=== PATIENT | female | born 1970 | race Caucasian/White ===

== ENCOUNTER 2018-04-17 17:52 | Emergency (ER) | payer MEDICAID, SELFPAY ==
[2018-04-17 18:04] VITALS: BP 112/71; PULSE 79; RESP 18; TEMP 36.6; O2SAT 99
--- NOTE | 2018-04-17 18:16 | DI.REPORT_ITS ---
SYMPTOM/DIAGNOSIS: TRAUMA, PAIN ANTERIORLY RIGHT ANKLE: No fracture or ankle mortise widening is seen. IMPRESSION: Negative right ankle.
[2018-04-17] MEDS: Ibuprofen 800 MG TAB PO (18:54)
--- NOTE | 2018-04-17 19:15 | DI.VRAD_ITS ---
EXAM: XR Right Ankle Complete, 3 or More Views CLINICAL HISTORY: 47 years old, female; Pain; Ankle; Right; Patient HX: Trauma TECHNIQUE: Frontal, lateral and oblique views of the right ankle. COMPARISON: CR - RIGHT FOOT COMPLETE 2013-04-26 23:53 FINDINGS: Bones/joints: Unremarkable. No acute fracture. No dislocation. Soft tissues: Unremarkable. IMPRESSION: Normal right ankle x-rays. Dictated and Authenticated by: Yobani Ribeiro MD. Ordering:CAPO JACOBS MD
--- NOTE | 2018-04-17 19:21 | ED.GENADUL ---
Disposition Clinical Impression: Ankle abrasion, Ankle contusion Disposition: HOME Condition: Fair Instructions: Contusion in Adults (ED), Abrasion (ED) Additional Instructions: Encourage rest, ice, elevation. Tylenol and/or ibuprofen as needed for discomfort. Please wear more supportive footwear. Ankle brace while pain persists. Keep wound clean, dry, covered. Monitor for signs of infection including redness, warmth, drainage, fever/chills, increased pain. If these arise please seek care urgently once again. Please with primary care in 1 week for reevaluation. Referrals: Becky Diana NP [Primary Care Provider] - Medical Decision Making - Radiology Data Radiology results: report reviewed X-ray reviewed by radiologist. Advise bones are unremarkable no acute fracture dislocation. Soft tissues are unremarkable. - Medical Decision Making Patient presents today with chief complaint of abrasion and contusion to the anterior aspect of the right ankle. States she struck it against a metal bed rail. She reports the pain is severe. Patient is requesting ibuprofen help with discomfort. She has a 1 cm superficial abrasion. I have asked her nursing staff to cleanse this. No intervention of the wound is necessary at this time. Appears very superficial. No subcu subcutaneous tissues involved. She does have surrounding soft tissue swelling. Patient is endorsing fairly diffuse discomfort with palpation. No pain at the proximal fifth metatarsal. She did not suffer rotational event that she is aware of. No pain proximal to the wound. We will obtain x-rays to evaluate for possible bony abnormality given the level of discomfort and difficulty with ambulation. Discussed this plan with patient is in agreement. X-ray without significant abnormality Discussed findings with the patient. Wound had been cleansed by nursing staff. We discussed wound care. Patient will be fitted with a lace up ankle brace. Encourage rest, ice, elevation. Tylenol and/or ibuprofen as needed for discomfort. We discussed new/worsening symptoms when to seek care urgently once again. Advise follow-up care in 1 week for reevaluation pain persist. All of her questions and concerns were addressed she is agreement this plan. Nursing staff fitted the patient with a lace up ankle brace and still she continues to endorse severe pain in the ankle. She is requesting crutches. Nursing staff will give crutches to help with ambulation. History of Present Illness - General Chief complaint: Orthopedic Stated complaint: ANKLE INJURY Time Seen by Provider: 04/17/18 18:15 Source: patient, RN notes reviewed Mode of arrival: ambulatory Limitations: no limitations - History of Present Illness Initial comments: Is a 47-year-old female presents today with chief complaint of right ankle pain. Arrival she was trying to set up a bed when she struck the anterior aspect of her right ankle against a metal bars of the bed. States that she struck with such force that her leg became entangled and she actually tore the bar from the bed. Last tetanus was last year per patient report. She denies any altered sensation. States that she has been having severe discomfort with mobilization. Has not had anything as of yet for her discomfort. Noted a small abrasion on the anterior aspect of the ankle. Wound is bleeding slightly. - Related Data Unknown [No Known Home Meds] 04/17/18 Allergies Allergy/AdvReac Type Severity Reaction Status Date / Time codeine Allergy Unknown Unverified 04/17/18 18:09 escitalopram oxalate Allergy Unknown Unverified 04/17/18 18:09 [From Lexapro] hydroxyzine Allergy Unknown Unverified 04/17/18 18:09 hydrocodone bitartrate AdvReac Severe cannot Unverified 04/17/18 18:09 [From Vicodin] breath DEMEROL/NARCOTICS AdvReac Intermediate Uncoded 04/17/18 18:09 Review of Systems Constitutional: no symptoms reported. denies: chills, fever Respiratory: no symptoms reported Musculoskeletal: as per HPI Skin: as per HPI Neurological: as per HPI Past Medical History - Past Medical History Rheumatoid arthritis, fibromyalgia, migraines Surgical history: other (D&C) - Social History Alcohol use: none Drug use: marijuana General Exam - General Limitations: no limitations General appearance: alert, in no apparent distress - Eye Eye exam: Present: normal apperance - Respiratory Respiratory exam: Absent: respiratory distress - Extremities Exam Extremities exam: Present: full ROM, tenderness, normal capillary refill, joint swelling. Absent: normal inspection (Exam the patient's right lower extremity is significant for a 1 cm superficial abrasion the anterior ankle. Wound is not actively bleeding. Is not into the subcutaneous tissue. Surrounding this, soft tissues are swollen. No discoloration. No erythema or ecchymosis. No discharge from the wound. Patient has full range of motion but does have pain elicited with dorsiflexion. Patient has fairly diffuse discomfort with palpation about the ankle although is maximal near the area of soft tissue swelling and abrasion.), pedal edema, calf tenderness - Neurological Exam Neurological exam: Present: alert, abnormal gait (Patient is ambulating with an antalgic gait secondary to right ankle pain). Absent: motor sensory deficit - Psychiatric Psychiatric exam: Present: normal affect, normal mood - Skin Skin exam: Present: warm, dry. Absent: intact (As above) Course Vital Signs - 24 hr 04/17/18 18:04 Temperature 36.6 C Pulse 79 Respiratory 18 Rate Blood Pressure 112/71 Pulse Oximetry 99
== END 2018-04-17 20:00 | disposition home or self-care (01) ==
PROVIDERS: Emergency Provider Physician Assistant; PCP Nurse Practitioner Family
DX: S90.511A Abrasion, right ankle, initial encounter (principal); S90.01XA Contusion of right ankle, initial encounter; W22.09XA Striking against other stationary object, initial encounter
CPT/HCPCS: 29515; 99284; 73610; 99282; E0114; L1902

== ENCOUNTER 2018-08-04 10:24 | Outpatient (CLI) | payer MEDICAID, SELFPAY ==
[2018-08-04 12:16] LABS: TSH (W/Ref FT4) 0.94 uIU/mL (0.358-3.74)
== END 2018-08-04 10:44 ==
PROVIDERS: PCP Nurse Practitioner Family; Visit Provider Nurse Practitioner Family
DX: F32.9 Major depressive disorder, single episode, unspecified (principal)
CPT/HCPCS: 36415; 84443

== ENCOUNTER 2019-08-16 20:08 | Emergency (ER) | payer MEDICAID, SELFPAY ==
--- NOTE | 2019-08-16 20:19 | W.ED.GENAD ---
Discharge Plan Disposition Patient Disposition: HOME Condition: Stable Discharge Details Chief Complaint: Chest Pain Clinical Impression: Asthma, Chest pain Primary Care Provider: Becky Diana ED Provider: Reji Olivo Home Meds and New Rx's Prescriptions: New prednisone 20 mg tablet 60 mg PO DAILY 4 Days Qty: 12 RF: 0 Continued albuterol sulfate [Ventolin HFA] 90 mcg/actuation HFA aerosol inhaler 2 puff IH Q4H PRN Qty: 8 RF: 3 guaifenesin 600 mg tablet extended release 12hr 600 mg PO BID PRN (Reason: cough) Qty: 30 RF: 0 Discharge Instructions Instructions: Chest Pain (ED) Additional Instructions: Follow up with your primary care provider within 1 week if you have worsening pain, difficulty breathing or feel more ill return to the emergency department Medical Decision Making 48 yo female with hx of anxuiety, asthma, no prior known heart disease comes in with 3 days of constant chest tightness. Denies pain with exertion, radiaion of taye, fevers, recent travel or surgeries. She is speaking in full sentences on exam with wheezing bilaterally in lower lung rose, no rashes on chest, no abdominal tenderness, no murmurs. HAs no leg swelling or calf pain. Her heart score is 1, will send troponin. Normal vascular exam and no tearing back pain so doubt dissection. Wells low and perc negative so doubt PE labs and xray unremarkable. She feels much better after neb and steroids and lung exam clear. Given over 4 hours of pain do not feel repeat trponin testing indicated. will d/c home and advised f/u with pcp and return precautions given Differential Diagnosis Differential Diagnosis: asthma, copd, pna, acs Medical Records Medical records reviewed: Yes I reviewed the patient's medical records. Imaging Data Radiologic Study: Attestation: I personally reviewed and interpreted this imaging study as follows: Imaging: X-Ray Radiologist's impression: emphysema Lab Data Lab results reviewed: Yes I reviewed the patient's lab results. ECG Data Attestation: I personally reviewed and interpreted this ECG (s) as follows: Prior ECG tracings: not available for review Interpretation: 1st ekg sinus rhythm, rate of 90, qtc 436, no acute st t wave ischemic findings 2nd ekg with v1 and v2 not flipped on lead placeemnt shows sinus rhtyhm, rate of 91, no acute st t wave ischemifc findings HPI General Mode of arrival: ambulatory. Date/Time Provider Initiated Documentation: 08/16/19 20:09. Limitations to Documentation: no limitations. Information obtained by: patient. History of Present Illness 48 year old F presents to the emergency department with the chief complaint of chest tightness, described as mild, with intensity rated at 3. Patient started experiencing this day(s) (3) and it has been constant. other things that improve symptom(s), (relaxing) No exacerbating factors reported . Patient did receive the following treatments prior to arrival, none Related Data Home Medications Medication Instructions Recorded Confirmed albuterol sulfate 90 mcg/actuation 2 puff IH Q4H PRN #8 gm 06/02/19 08/16/19 aerosol inhaler guaifenesin 600 mg tablet, 600 mg PO BID PRN #30 tab 06/02/19 08/16/19 extended release 12 hr prednisone 60 mg PO DAILY 4 Days #12 tab 08/16/19 Previous Rx's Medication Instructions Recorded albuterol sulfate 90 mcg/actuation 2 puff IH Q4H PRN #8 gm 06/02/19 aerosol inhaler guaifenesin 600 mg tablet, 600 mg PO BID PRN #30 tab 06/02/19 extended release 12 hr prednisone 60 mg PO DAILY 4 Days #12 tab 08/16/19 Allergies Allergy/AdvReac Type Severity Reaction Status Date / Time codeine Allergy Unknown Unverified 06/06/19 13:49 escitalopram oxalate Allergy Unknown Unverified 06/06/19 13:49 [From Lexapro] hydroxyzine Allergy Unknown Unverified 06/06/19 13:49 hydrocodone bitartrate AdvReac Severe cannot Unverified 06/06/19 13:49 [From Vicodin] breath sertraline AdvReac hair loss Verified 06/06/19 13:49 DEMEROL/NARCOTICS AdvReac Intermediate Uncoded 06/06/19 13:49 Review of Systems All systems reviewed & are unremarkable except as noted in HPI and below Constitutional Constitutional: Denies chills, Denies fever(s) and Denies weakness ENT Ears, Nose, Mouth, and Throat: Denies change in voice Respiratory Respiratory: Denies cough Gastrointestinal Gastrointestinal: Denies abdominal pain, Denies nausea and Denies vomiting Musculoskeletal Musculoskeletal: Denies joint swelling Neurologic Neurologic: Denies weakness [facility] Medical History (Updated 06/06/19 @ 14:03 by Aure Michaels NP) Alopecia Alopecia (Acute 01/07/18) Anxiety Anxiety (Chronic) Asthma (Chronic) Wheat's palsy Depression Fibrocystic disease of both breasts Hyperesthesia (Chronic 03/19/14) Left Hyperlipidemia, unspecified (Chronic 03/22/18) 03/2018 labs: 10-year ASCVD risk = ~2.8% --> no statin indicated at this time PTSD (post-traumatic stress disorder) Tobacco use disorder (Chronic) quit 05/23/19 Surgical History (Updated 06/02/19 @ 13:45 by Vi eClestin RN) H/O wisdom tooth extraction (Acute) Family History Mother , Breast CA at age 50. Neoplasm Brain, Lung Father Alcohol abuse Son Narcolepsy Son No problems noted. Daughter Drug abuse and dependence Brother AVM (arteriovenous malformation) brain Social History (Updated 06/02/19 @ 13:48 by Vi Celestin RN) Smoking/Tobacco Use Status: Former Tobacco Use Quit Date: 05/23/19 Pack-years: 25 Alcohol Intake: former Drug use: Occasionally Substance use type: marijuana Household members: friend(s) and other Number of Children: 3 number of grandchildren: 6 Communication Needs: None Education Level: high school Details: 11 Do you need help understanding health information?: Never Pets and animals: Yes Pets and animals: dog(s) Sexually active: No Do you think of yourself as: straight/heterosexual Current gender identity: female What type of physical activity do you participate in: yoga Duration: 30-45 minutes/day Frequency: daily Rozina/Confucianist: Sabianist Special rozina needs: No (non practicing) Do you feel safe at home: Yes Do you feel safe in your relationship?: Yes Exam Const General: no acute distress Orientation: alert HENMT Head: normal to inspection Ears: external ears normal General nose exam: external nose normal Mouth: moist mucous membranes Eyes General: appearance normal, both eyes and all related structures Neck Neck: normal visual inspection Resp Effort & Inspection: normal respiratory effort and able to speak in complete sentences Cardio Rate: regular rate Skin General skin exam: no rashes or lesions noted Neuro General: alert and oriented x3 Extrem General: normal to inspection Psych Mental Status: mental status grossly normal
[2019-08-16 20:21] VITALS: BP 131/85; PULSE 91; RESP 15; TEMP 36.7; O2SAT 94
[2019-08-16 20:26] VITALS: RESP 18
[2019-08-16] MEDS: Albuterol/Ipratropium 3 ML UPD VIAL UPD (20:34)
[2019-08-16] MEDS: predniSONE 20 MG TAB 60 MG PO (20:34)
--- NOTE | 2019-08-16 21:00 | DI.RAD_ITS ---
EXAM: XR CHEST 2V PA LATERAL INDICATION: chest pain. COMPARISON: CHEST 2 VIEWS PA,LAT from 10/13/2017 TECHNIQUE: 2D digital imaging was performed. FINDINGS: Cardiac and mediastinal contours have a normal appearance. The lungs are mildly hyperinflated but ap pear clear. No infiltrate, effusion or pneumothorax is seen. IMPRESSION: . Hyperinflation, otherwise negative.
[2019-08-16 21:04] LABS: Abs Immature Grans 0.01 k/cumm (0.0-0.09); Absolute Basophil Count 0.03 k/cumm (0.0-0.2); Absolute Lymphocyte Count 2.04 k/cumm (1.2-3.4); Absolute Monocyte Count 0.72 k/cumm (0.11-0.7); Basophils % 0.4; Eosinophils % 1.4; HCT 37.9 % (36.0-46.0); HGB 13.2 g/dL (12.0-15.5); Immature Grans % 0.1; Lymphocytes % 27.6; Mean Corp. HGB Concentration 34.8 g/dL (32.0-36.0); Mean Corpuscular Volume 91.8 fL (80-95); Mean Platelet Volume 9.6 fL (8.0-11.0); Monocytes % 9.7; Neutrophils % 60.8; Platelet Count 293 x1000/uL (130-400); RBC 4.13 m/cumm (4.00-5.20); RBC Distribution Width 11.8 % (11.7-14.6)
--- NOTE | 2019-08-16 21:05 | DI.VRAD_ITS ---
PROCEDURE INFORMATION: Exam: XR Chest, 2 Views Exam date and time: 08/16/2019 8:27 PM Age: 48 years old Clinical history: Chest pain; Type not specified TECHNIQUE: Imaging protocol: XR of the chest Views: 2 views. COMPARISON: CR CHEST 2 VIEWS PA,LAT 10/13/2017 5:39 PM FINDINGS: Lungs: Hyperinflated and hyperlucent in upper lung regions. Prominent retrosternal and retrocardiac air spaces. No consolidation. Pleural space: Unremarkable. No pleural effusion. No pneumothorax. Heart/Mediastinum: Unremarkable. No cardiomegaly. Bones/joints: Degenerative changes. IMPRESSION: Emphysema. Dictated and Authenticated by: Mich Sanchez MD. Ordering:LEXA Mendoza MD
[2019-08-16 21:14] LABS: Magnesium 1.8 mg/dL (1.8-2.4)
[2019-08-16 21:17] LABS: HCG Qual (Serum) Negative
[2019-08-16 21:31] LABS: Troponin I < 0.05 ng/Ml (<0.06)
[2019-08-16 23:04] VITALS: BP 112/67; PULSE 85; RESP 16; TEMP 37.2; O2SAT 99
== END 2019-08-16 21:45 | disposition home or self-care (01) ==
PROVIDERS: Emergency Provider Emergency Medicine; PCP Nurse Practitioner Family
DX: J45.909 Unspecified asthma, uncomplicated (principal); R07.9 Chest pain, unspecified; Z87.891 Personal history of nicotine dependence
CPT/HCPCS: 36415; 93005; 94640; 99285; 71046; 83735; 84484; 84703; 85025; 93010; 99284; J7512; J7620

== ENCOUNTER 2019-10-02 18:27 | Outpatient (REF) | payer MEDICAID, SELFPAY ==
--- NOTE | 2019-10-02 15:45 | PAPFT_PTH ---
PATIENT: Dulce Griffin LOC: [facility]#:[id number] AGE/SX: 48/F ROOM: RE10/02/[address]: Wendy Blair APRN : 1970 BED: DIS: 10/02/2019 SPEC #: [id number] RECD: 10/02/19 18:33 STATUS: OLIVERIO REVick #: [id number] GAYATHRI: 10/02/19 15:[address]: Wendy Blair DEPT: [facility] Cytology RECD BY: Ofelia Grubbs Tissues: 1 - CX/ENDOCX FOR PAP SMEARS Procedures: PAP THIN PREP/UVM Screening HPV DNA PROBE Comments: [id number]
== END 2019-10-02 18:47 ==
LOC: NCHCN 18:27
PROVIDERS: PCP Nurse Practitioner Adult Health; Visit Provider Nurse Practitioner Adult Health
DX: Z12.4 Encounter for screening for malignant neoplasm of cervix (principal); Z11.51 Encounter for screening for human papillomavirus (HPV)
CPT/HCPCS: 88142; 87624

== ENCOUNTER 2019-11-02 01:57 | Outpatient (CLI) | payer MEDICAID, SELFPAY ==
--- NOTE | 2019-11-02 12:39 | DI.MAMMO_ITS ---
EXAM: MG MAMMO SCREENING CLINICAL HISTORY: screening Z12.39. TECHNIQUE: Bilateral full field digital CC and MLO mammographic images were obtained with 3D tomosyn thesis and utilizing computer aided detection (CAD). COMPARISON: 2009 through 2017 FINDINGS: Masses/Architectural Distortion: None seen. Microcalcifications: No suspicious pleomorphic-type are seen. Skin Thickening/Nipple Retraction: None. IMPRESSION: 1. No significant interval change with no specific features of malignancy noted. 2. Unless there is more urgent need, annual screening mammography is recommended, as per [place] [employer] guidelines. ACR BI-RAD Category- 1 Negative Breast Density Category D: The mammogram demonstrates the patient's breast tissue is dense. Dense crystal ast tissue is very common and is not abnormal but dense breast tissue can make it harder to find canc er on a mammogram. Also, dense breast tissue may increase their breast cancer risk. This information about the result of the mammogram report was provided to the patient to raise their awareness. Use th is report when you speak with the patient about their risks for breast cancer, which includes their f amily history. At that time, you may recommend for more screening tests (Ultrasound or MRI) as they m ight be useful based on their risk. A negative radiographic report should not delay biopsy if a dominant or clinically suspicious mass is present. Up to ten percent of cancers are not identified on mammography. A negative report may reinforce clinical impression. Adenosis and dense breasts may obscure an underlying neoplasm. False positive reports average 6 to 10%.
== END 2019-11-02 02:17 ==
PROVIDERS: PCP Nurse Practitioner Adult Health; Visit Provider Nurse Practitioner Adult Health
DX: Z12.31 Encounter for screening mammogram for malignant neoplasm of breast (principal)
CPT/HCPCS: 77063; 77067

== ENCOUNTER 2019-11-06 01:28 | Outpatient (CLI) | payer MEDICAID, SELFPAY ==
--- NOTE | 2019-11-06 12:56 | DI.RAD_ITS ---
EXAM: PA AND LATERAL CHEST CLINICAL HISTORY: CHRONIC COUGH,? ACUTE OR OTHER PROCESS, R05 TECHNIQUE: 2D digital imaging was performed. COMPARISON: XR CHEST 2V PA LATERAL from 08/16/2019 FINDINGS: The cardiac and mediastinal contours have a normal appearance. The lungs are well inflated and clear . No infiltrate, effusion or pneumothorax is seen. No spine or rib fracture is identified. IMPRESSION: Negative chest x-ray.
== END 2019-11-06 01:48 ==
PROVIDERS: PCP Nurse Practitioner Adult Health; Visit Provider Nurse Practitioner Adult Health
DX: R05 Cough (principal)
CPT/HCPCS: 71046

== ENCOUNTER 2020-01-25 15:09 | Emergency (ER) | payer MEDICAID, SELFPAY ==
[2020-01-25 15:13] VITALS: BP 136/82; PULSE 104; RESP 18; TEMP 36.4; O2SAT 94
--- NOTE | 2020-01-25 15:15 | DI.RAD_ITS ---
EXAM: XR SHOULDER RT COMPLETE 2+V CLINICAL HISTORY: fall, pain at AC joint, r/o fx. TECHNIQUE: 2D digital imaging was performed. COMPARISON: No exams were available for comparison FINDINGS: BONES: No acute fracture is present. No bony destructive lesion is seen. JOINTS: No dislocation present. SOFT TISSUE: Normal. IMPRESSION: Unremarkable radiographs of the right shoulder. DATA REPOSITORY: RADIATION DOSE DELIVERED:
--- NOTE | 2020-01-25 15:22 | W.ED.GENAD ---
Discharge Plan Disposition Patient Disposition: HOME Condition: Good Discharge Details Chief Complaint: Trauma Clinical Impression: Sprain of right shoulder Primary Care Provider: Wendy Blair ED Provider: Kiko Renner Home Meds and New Rx's Prescriptions: New lidocaine [Lidoderm] 1 PATCH patch 1 patch Topical Q24H Qty: 4 RF: 0 No Action albuterol sulfate [Ventolin HFA] 90 mcg/actuation HFA aerosol inhaler 2 puff IH Q4H PRN Qty: 8 RF: 3 hydrocortisone 2.5 % cream 1 applic TP BID PRN (Reason: hemorrhoids) Qty: 30 RF: 0 mirtazapine 15 mg tablet 7.5 mg PO QHS RF: 0 hydroxyzine pamoate [Vistaril] 25 mg capsule 25 mg PO BID RF: 0 Discharge Instructions Instructions: Shoulder Sprain (ED) Additional Instructions: At this time your x-ray shows no evidence of fracture, I do suspect that you have injured your rotator cuff as well as your AC joint. Usually takes about 6 weeks for the bursa inflammation irritation to improve, and so it is very important to take Tylenol and Motrin daily as needed for pain to help with improvement. Please use the sling for comfort, but make sure to move your shoulder and arm in all directions multiple times throughout the day to prevent frozen shoulder syndrome. Your symptoms do not improve over the next 6 weeks, you may need follow-up with an building performance specialist. If you notice any worsening of your symptoms, or any new symptoms such as vomiting, diarrhea, fever, chills, shortness of breath, chest pain, numbness, weakness, or fainting , please return immediately to the emergency department for reevaluation. Please follow up with your primary care provider as soon as possible for reassessment and reevaluation. As always, it was a pleasure participating in your medical care today. Referrals: Wendy Blair, OCCUPATIONAL THERAPY INSTRUCTOR [Primary Care Provider] - Medical Decision Making 49-year-old female with no significant past medical history except for PTSD, high cholesterol, asthma, anxiety, who presents today for evaluation of fall. The patient states that she was walking earlier today, caught the edge of a curb and fell forward, she did hit the left side of her head but more importantly she had her left shoulder. She had no loss of consciousness, mild bleeding from the abrasion on her scalp. Tetanus was updated in 2018. She denies any headache or vision changes, however she does complain of notable pain in the right shoulder that is continued throughout the day. She describes it as moderate to severe just over the AC joint. Pain is notably worse with movement, improved by rest. She denies any numbness or tingling. She denies any chest pain neck pain vision changes abdominal pain or other complaints. No other modifying factors. No other complaints at this time. Exam demonstrates abrasions over the left temporal region, no lacerations requiring suturing, no depressions, no other evidence of trauma to the head, no midline cervical spine tenderness, no current clinical indication for CT scan or further imaging the patient is not on blood thinners. Additionally patient does have notable pain over her right shoulder primarily over the AC joint, limited range of motion in abduction, stopping at roughly 75 to 80 degrees. Positive empty can test. Notable pain with external rotation, no significant pain with internal rotation. Symptoms are certainly concerning for AC joint injury as well as mild rotator cuff tear, primarily supraspinatus potentially, however this may just be secondary to notable bursal irritation. Will get x-ray to rule out fracture which I feel unlikely. Will recommend shoulder exercises, arm sling, and follow-up in the next 4 to 6 weeks with orthopedics if her symptoms do not improve with NSAIDs rest and ice. 3:55 PM X-ray results are negative for evidence of acute fracture process. No signs of dislocation. Suspect bursal injury, in conjunction with rotator cuff injury. Will give sling, recommend NSAIDs ice and rest. Discussed red flags which to return. I have extensively reviewed the treatment plan and discharge instructions with the patient. I have addressed all patient concerns at this time. The patient was made aware of what symptoms to monitor for that would warrant a return to the emergency department. Discussed the plan with the patient, they demonstrate verbal understanding and agreement with our assessment and plan at this time. HPI General Date/Time Provider Initiated Documentation: 01/25/20 15:11. HPI Narrative: 49-year-old female with no significant past medical history except for PTSD, high cholesterol, asthma, anxiety, who presents today for evaluation of fall. The patient states that she was walking earlier today, caught the edge of a curb and fell forward, she did hit the left side of her head but more importantly she had her left shoulder. She had no loss of consciousness, mild bleeding from the abrasion on her scalp. Tetanus was updated in 2018. She denies any headache or vision changes, however she does complain of notable pain in the right shoulder that is continued throughout the day. She describes it as moderate to severe just over the AC joint. Pain is notably worse with movement, improved by rest. She denies any numbness or tingling. She denies any chest pain neck pain vision changes abdominal pain or other complaints. No other modifying factors. No other complaints at this time. Related Data Home Medications Medication Instructions Recorded Confirmed albuterol sulfate 90 mcg/actuation 2 puff IH Q4H PRN #8 gm 06/02/19 01/25/20 aerosol inhaler hydrocortisone 2.5 % topical cream 1 applic TP BID PRN #30 gm 10/02/19 01/25/20 hydroxyzine pamoate 25 mg capsule 25 mg PO BID 11/08/19 01/25/20 mirtazapine 15 mg tablet 7.5 mg PO QHS tab 11/08/19 01/25/20 lidocaine [Lidoderm] 1 patch TOPICAL Q24H #4 patch 01/25/20 Previous Rx's Medication Instructions Recorded albuterol sulfate 90 mcg/actuation 2 puff IH Q4H PRN #8 gm 06/02/19 aerosol inhaler hydrocortisone 2.5 % topical cream 1 applic TP BID PRN #30 gm 10/02/19 lidocaine [Lidoderm] 1 patch TOPICAL Q24H #4 patch 01/25/20 Allergies Allergy/AdvReac Type Severity Reaction Status Date / Time codeine Allergy Unknown Unverified 01/25/20 15:19 escitalopram oxalate Allergy Unknown Unverified 01/25/20 15:19 [From Lexapro] hydroxyzine Allergy Unknown Unverified 01/25/20 15:19 hydrocodone bitartrate AdvReac Severe cannot Unverified 01/25/20 15:19 [From Vicodin] breath sertraline AdvReac hair loss Verified 01/25/20 15:19 DEMEROL/NARCOTICS AdvReac Intermediate Uncoded 01/25/20 15:19 General Stated Complaint: Trauma SALLIE: 3 Review of Systems All systems reviewed & are unremarkable except as noted in HPI and below [facility] Medical History (Updated 01/25/20 @ 15:35 by Kiko Renner DO) Alcohol use disorder, mild, in sustained remission (Acute) Alopecia Alopecia (Acute 01/07/18) Anxiety Anxiety (Chronic) Asthma (Chronic) Wheat's palsy Depression (Chronic) External hemorrhoid (Chronic) PRN topical steroid Fibrocystic disease of both breasts HPV test positive (Acute) 10/02/2019 pap smear, recalled for 1 year Hyperesthesia (Inactive 03/19/14) Left Hyperlipidemia, unspecified (Chronic 03/22/18) 03/2018 labs: 10-year ASCVD risk = ~2.8% --> no statin indicated at this time PTSD (post-traumatic stress disorder) Tobacco use disorder (Inactive) quit 05/23/19 Surgical History H/O hemorrhoidectomy (Chronic) H/O wisdom tooth extraction (Acute) Social History Smoking/Tobacco Use Status: Former Tobacco Use Quit Date: 05/23/19 Pack-years: 25 Second Hand Exposure: Yes Alcohol Intake: former Drug use: Occasionally Substance use type: marijuana Household members: friend(s) and other Number of Children: 3 number of grandchildren: 6 Communication Needs: None Education Level: high school Details: 11 Do you need help understanding health information?: Never Pets and animals: Yes Pets and animals: dog(s) Sexually active: No Do you think of yourself as: straight/heterosexual Current gender identity: female What type of physical activity do you participate in: yoga Duration: 30-45 minutes/day Frequency: daily Rozina/Baptist: [employer] Special rozina needs: No (non practicing) Do you feel safe at home: Yes Do you feel safe in your relationship?: Yes Exam Narrative Exam Narrative: 1.Const: Well-nourished, Well-developed, appearing stated age 2.Eyes: PERRL, no conjunctival injection, and symmetrical lids. 3.ENT: Atraumatic external nose and ears. Moist MM. Neck: Symmetric, trachea midline, No thyromegaly. There is no evidence of raccoon eyes, santana sign, CSF rhinorrhea, mastoid tenderness, cranial crepitus, hemotympanum, exophthalmos, or hyphema. 4.CVS: +S1/S2, No murmurs or gallops. Peripheral pulses 2+ and equal in all extremities. Brisk capillary refill in all extremities. 5.RESP: Unlabored respiratory effort. Clear to auscultation bilaterally. No wheezes rales or rhonchi 6.GI: Soft, Nontender/Nondistended, No hepatosplenomegaly. No guarding or rebound. 7.MSK: Normocephalic, Extremities w/o deformity or ttp No cyanosis or clubbing, examination of the right shoulder demonstrates mild to moderate tenderness over the right AC joint, notable pain with abduction, and external rotation, notable pain with empty can test. Patient is only able to abduct the right shoulder to about 80 degrees, notable pain at this point, no significant strength past this. No significant pain with internal rotation. No midline cervical spine tenderness, no pain or tenderness over the clavicle, no pain in the proximal mid or distal humerus. No other abnormalities. 8.Skin: Warm, Dry. No rashes or lesions. Mild abrasions noted over the left frontal and temporal regions of the scalp, mild contusion hematoma, no depressions or signs of deformity. Symptoms consistent with mild superficial abrasions, no lacerations. 9.Neuro: neuro psych sales specialist II-XII grossly intact. Sensation grossly intact, no focal neurologic deficits. 10.Psych: (AAO) x3. Appropriate mood and affect Course Vital Signs Vital signs: Vital Signs Temperature 36.4 C L 01/25/20 15:13 Pulse 104 H 01/25/20 15:13 Respiratory Rate 18 01/25/20 15:13 Blood Pressure 136/82 01/25/20 15:13 Pulse Oximetry 94 L 01/25/20 15:13 Temperature 36.4 C L 01/25/20 15:13 Temperature Source Temporal Artery Scan 01/25/20 15:13 Pulse 104 H 01/25/20 15:13 Respiratory Rate 18 01/25/20 15:13 Respiratory Effort Non-Labored 01/25/20 15:18 Blood Pressure 136/82 01/25/20 15:13 Blood Pressure Position Sitting 01/25/20 15:13 Pulse Oximetry 94 L 01/25/20 15:13 Oxygen Delivery Method Room Air 01/25/20 15:13 Oxygen Flow Rate 0 01/25/20 15:13 Pain Level 10 01/25/20 15:13
[2020-01-25] MEDS: Lidocaine 5% Patch 1 PATCH TP (15:49)
== END 2020-01-25 16:10 | disposition home or self-care (01) ==
PROVIDERS: Emergency Provider Student in an Organized Health Care Education/Training Program; PCP Nurse Practitioner Adult Health
DX: S43.51XA Sprain of right acromioclavicular joint, initial encounter (principal); S00.01XA Abrasion of scalp, initial encounter; W10.1XXA Fall (on)(from) sidewalk curb, initial encounter
CPT/HCPCS: 99283; 73030; L3650

== ENCOUNTER 2020-07-01 12:09 | Emergency (ER) | payer MEDICAID, SELFPAY ==
[2020-07-01 12:17] VITALS: BP 121/89; PULSE 102; RESP 18; TEMP 36.4; O2SAT 97
--- NOTE | 2020-07-01 12:38 | ED.GENADUL_ITS ---
Discharge Plan Disposition Patient Disposition: HOME Condition: Stable Discharge Details Clinical Impression: Sinusitis Primary Care Provider: Wendy Blair ED Provider: Valeriano Rubio Home Meds and New Rx's Prescriptions: New budesonide [Rhinocort Allergy] 32 mcg/actuation spray,non-aerosol 1 spray intranasal QAM AND QPM Qty: 8.43 RF: 0 loratadine-pseudoephedrine [Claritin-D 24 Hour] 10-240 mg tablet extended release 24 hr 1 tab PO DAILY PRNQty: 14 RF: 0 amoxicillin 875 mg tablet 875 mg PO BID Qty: 20 RF: 0 Continued albuterol sulfate [Ventolin HFA] 90 mcg/actuation HFA aerosol inhaler 2 puff IH Q4H PRN Qty: 8 RF: 3 hydrocortisone 2.5 % cream 1 applic TP BID PRN (Reason: hemorrhoids) Qty: 30 RF: 0 mirtazapine 15 mg tablet 7.5 mg PO QHS RF: 0 hydroxyzine pamoate [Vistaril] 25 mg capsule 25 mg PO BID RF: 0 lidocaine [Lidoderm] 1 PATCH patch 1 patch Topical Q24H Qty: 4 RF: 0 Discharge Instructions Instructions: Sinusitis (ED) Additional Instructions: I would initiate Claritin-D and Rhinocort allergy medication as directed. Please watch for new or worsening symptoms and return to the ER for any concerns. I do recommend that you attempt to quit smoking like you have in the past. This is more conservative therapy, if you are not improving over the next 5-7 days then I do believe adding on amoxicillin is perfectly reasonable. I also recommend reaching out your primary care provider for prompt outpatient reevaluation. Medical Decision Making 49-year-old female presents with 3-day history of right ear pain that is now spread into her face. Denies difficulty opening her mouth. Denies dental pain. She appears well, nontoxic. Ear examination is unremarkable. Mastoid is nontender. She does have mild discomfort over the right frontal sinus and her nasal mucosa is boggy. Explained that this very well could be early sinusitis but is likely viral in nature and I would recommend treating with antihistamine, decongestant, and nasal steroid. I will provide her with an antibiotic that she may fill in a week if she is not getting resolution of her symptoms with more conservative therapy. Patient is agreeable to this plan and has no additional questions or concerns. We did discuss smoking cessation. Medical Records Medical records reviewed: Yes I reviewed the patient's medical records. HPI General Mode of arrival: ambulatory . Date/Time Provider Initiated Documentation: 07/01/20 12:10 . Limitations to Documentation: no limitations . Information obtained by: patient . HPI Narrative: This is a 49-year-old female, current smoker, past medical history that includes anxiety, asthma, hyperlipidemia, depression, presenting to the ER with 3-day history of right- sided ear pain that is now spread over to her face. She reports a history of swimmer's ear but has not been swimming recently. Denies any drainage from her right ear. Reports that now her sinuses above her right eye are painful. She reports nasal congestion but no real drainage. Denies fever, neck pain, headache, sore throat. She reports a chronic smoker's cough but this is unchanged. She has not tried any yrzg-sel-ajdhzji medications such as antihistamine, decongestant, nasal steroid, etc. Denies recent sick contact or travel. Denies any dental pain Related Data Home Medications Medication Instructions Recorded Confirmed albuterol sulfate 90 mcg/actuation 2 puff IH Q4H PRN #8 gm 06/02/19 01/25/20 aerosol inhaler hydrocortisone 2.5 % topical cream 1 applic TP BID PRN #30 gm 10/02/19 01/25/20 hydroxyzine pamoate 25 mg capsule 25 mg PO BID 11/08/19 07/01/20 mirtazapine 15 mg tablet 7.5 mg PO QHS tab 11/08/19 07/01/20 lidocaine [Lidoderm] 1 patch TOPICAL Q24H #4 patch 01/25/20 amoxicillin 875 mg PO BID #20 tab 07/01/20 budesonide [Rhinocort Allergy] 1 spray INTRANASAL QAM AND QPM 07/01/20 #8.43 ml loratadine-pseudoephedrine 1 tab PO DAILY PRN #14 tab 07/01/20 [Claritin-D 24 Hour] Previous Rx's Medication Instructions Recorded albuterol sulfate 90 mcg/actuation 2 puff IH Q4H PRN #8 gm 06/02/19 aerosol inhaler hydrocortisone 2.5 % topical cream 1 applic TP BID PRN #30 gm 10/02/19 lidocaine [Lidoderm] 1 patch TOPICAL Q24H #4 patch 01/25/20 amoxicillin 875 mg PO BID #20 tab 07/01/20 budesonide [Rhinocort Allergy] 1 spray INTRANASAL QAM AND QPM 07/01/20 #8.43 ml loratadine-pseudoephedrine 1 tab PO DAILY PRN #14 tab 07/01/20 [Claritin-D 24 Hour] Allergies Allergy/AdvReac Type Severity Reaction Status Date / Time codeine Allergy Unknown Unverified 07/01/20 12:20 escitalopram oxalate Allergy Unknown Unverified 07/01/20 12:20 [From Lexapro] hydroxyzine Allergy Unknown Unverified 07/01/20 12:20 hydrocodone bitartrate AdvReac Severe cannot Unverified 07/01/20 12:20 [From Vicodin] breath sertraline AdvReac hair loss Verified 07/01/20 12:20 DEMEROL/NARCOTICS AdvReac Intermediate Uncoded 07/01/20 12:20 General Stated Complaint: FacialProb SALLIE: 4 Review of Systems Constitutional Constitutional: Denies fever(s) and Denies headache(s) Eyes Eyes: Denies eye discharge ENT Ears, Nose, Mouth, and Throat: Denies ear discharge, Reports otalgia, Denies headache(s), Reports nasal congestion and Denies sore throat Cardiovascular Cardiovascular: Denies chest pain and Denies dyspnea Respiratory Respiratory: Reports cough and Denies dyspnea Integumentary/Breasts Skin/Breast: Denies rash Neurologic Neurologic: Denies headache(s) [facility] Medical History Alcohol use disorder, mild, in sustained remission Alopecia Alopecia (01/07/18) Anxiety Anxiety Asthma Wheat's palsy Depression External hemorrhoid PRN topical steroid Fibrocystic disease of both breasts HPV test positive 10/02/2019 pap smear, recalled for 1 year Hyperesthesia (03/19/14) Left Hyperlipidemia, unspecified (03/22/18) 03/2018 labs: 10-year ASCVD risk = ~2.8% --> no statin indicated at this time PTSD (post-traumatic stress disorder) Tobacco use disorder quit 05/23/19 Surgical History H/O hemorrhoidectomy H/O wisdom tooth extraction Family History Mother , Breast CA at age 50. Neoplasm Brain, Lung Father Alcohol abuse Son Narcolepsy Daughter Drug abuse and dependence Brother AVM (arteriovenous malformation) brain Social History Smoking/Tobacco Use Status: Current-Occasional Tobacco Type: cigarettes Second Hand Exposure: Yes Alcohol Intake: current Alcohol Intake frequency: a few times a month Drug use: Occasionally Substance use type: marijuana Household members: friend(s) and other Number of Children: 3 number of grandchildren: 6 Communication Needs: None Education Level: high school Details: 11 Do you need help understanding health information?: Never Pets and animals: Yes Pets and animals: dog(s) Sexually active: No Do you think of yourself as: straight/heterosexual Current gender identity: female What type of physical activity do you participate in: yoga Duration: 30-45 minutes/day Frequency: daily Rozina/Jain: Muslim Special rozina needs: No (non practicing) Do you feel safe at home: Yes Do you feel safe in your relationship?: Yes Exam Const General: cooperative, healthy appearing, comfortable and no acute distress Orientation: alert and awake HENPR Head: normal to inspection, normocephalic and atraumatic Ears: external ears normal, TM's normal bilaterally and TM normal on the left General nose exam: external nose normal, no nasal discharge and mucous membranes and turbinates abnormal boggy Face and sinus: normal facial exam, face symmetric and sinus tenderness frontal (Right-sided, mild) Mouth: moist mucous membranes Teeth and gingiva: dentition normal Throat: posterior oropharynx normal Eyes General: appearance normal, both eyes and all related structures Alignment and Position: alignment normal Periorbital: periorbital findings normal Eyelids: eyelids normal Conjunctivae: conjunctivae normal Sclera: sclerae normal Cornea: corneas normal Pupils: PERRL EOM: EOM intact bilaterally Direct ophthalmoscopy: normal light reflex Neck Neck: normal visual inspection, full ROM, no lymphadenopathy, no meningeal signs, trachea midline, supple and nontender Resp Effort & Inspection: normal respiratory effort and able to speak in complete sentences Auscultation: clear to auscultation bilaterally Cardio Rate: regular rate Rhythm: regular rhythm Skin General skin exam: no rashes or lesions noted Neuro General: patient alert, patient awake, moves all extremities and no focal motor deficits Sensory Exam: no sensory deficits noted Psych Appearance: grossly normal Mental Status: mental status grossly normal Course Vital Signs Vital signs: Vital Signs Temperature 36.4 C L 07/01/20 12:17 Pulse 102 H 07/01/20 12:17 Respiratory Rate 18 07/01/20 12:17 Blood Pressure 121/89 07/01/20 12:17 Pulse Oximetry 97 07/01/20 12:17 Temperature 36.4 C L 07/01/20 12:17 Temperature Source Temporal Artery Scan 07/01/20 12:17 Pulse 102 H 07/01/20 12:17 Respiratory Rate 18 07/01/20 12:17 Respiratory Effort Non-Labored 07/01/20 12:19 Blood Pressure 121/89 07/01/20 12:17 Blood Pressure Position Sitting 07/01/20 12:17 Pulse Oximetry 97 07/01/20 12:17 Oxygen Delivery Method Room Air 07/01/20 12:17 Oxygen Flow Rate 0 07/01/20 12:17 Pain Level 5 07/01/20 12:17
[2020-07-01 12:53] VITALS: BP 121/89; PULSE 90; RESP 18; TEMP 36.4; O2SAT 97
== END 2020-07-01 12:53 | disposition home or self-care (01) ==
PROVIDERS: Emergency Provider Physician Assistant; PCP Nurse Practitioner Adult Health
DX: J01.90 Acute sinusitis, unspecified (principal); F17.210 Nicotine dependence, cigarettes, uncomplicated
CPT/HCPCS: 99283

== ENCOUNTER 2020-11-07 16:02 | Outpatient (REF) | payer MEDICAID, SELFPAY | END 2020-11-07 16:03 | disposition home or self-care (01) | LOC: NCHCN 16:02 | PROVIDERS: PCP Nurse Practitioner Adult Health; Visit Provider Nurse Practitioner Family | DX: R22.31 Localized swelling, mass and lump, right upper limb (principal); L98.8 Other specified disorders of the skin and subcutaneous tissue | CPT/HCPCS: 87070; 87205 ==

== ENCOUNTER 2020-11-20 16:08 | Outpatient (REF) | payer MEDICAID, SELFPAY ==
--- NOTE | 2020-11-20 14:00 | PAPFT_PTH ---
PATIENT: Dulce Griffin LOC: [facility] U#:[id number] AGE/SX: 49/F ROOM: RE11/20/[address]: Wendy Blair APRN : 1970 BED: DIS: 11/20/2020 SPEC #: [id number] RECD: 11/21/20 12:44 STATUS: OLIVERIO REVick #: [id number] GAYATHRI: 11/20/20 14:[address]: Wendy Blair DEPT: [facility] Cytology RECD BY: Ofelia Grubbs Tissues: 1 - CX/ENDOCX FOR PAP SMEARS Procedures: PAP THIN PREP/UVM Screening HPV DNA PROBE Comments: [id number]
== END 2020-11-20 16:09 | disposition home or self-care (01) ==
LOC: LBN 16:08
PROVIDERS: PCP Nurse Practitioner Adult Health; Referring Provider Nurse Practitioner Adult Health; Visit Provider Nurse Practitioner Adult Health
DX: Z12.4 Encounter for screening for malignant neoplasm of cervix (principal); Z11.51 Encounter for screening for human papillomavirus (HPV); R87.810 Cervical high risk human papillomavirus (HPV) DNA test positive
CPT/HCPCS: 88142; 87624

== ENCOUNTER 2021-01-01 15:14 | Outpatient (REF) | payer MEDICAID, SELFPAY ==
[2021-01-01 19:08] LABS: BUN 11 mg/dL (7-18); CREATININE 0.7 mg/dL (0.55-1.02); Calcium 9.9 mg/dL (8.5-10.1); Chloride 100 mmol/L (98-107); Glucose 82 mg/dL (74-106); Potassium 4.7 mmol/L (3.5-5.1); Sodium 137 mmol/L (136-145)
== END 2021-01-01 15:15 | disposition home or self-care (01) ==
LOC: LBN 15:14
PROVIDERS: PCP Nurse Practitioner Adult Health; Visit Provider Nurse Practitioner Adult Health
DX: I10 Essential (primary) hypertension (principal)
CPT/HCPCS: 80048

== ENCOUNTER 2021-04-02 09:03 | Emergency (ER) | payer MEDICAID, SELFPAY ==
[2021-04-02 09:06] VITALS: BP 150/91; PULSE 97; RESP 16; TEMP 36.6; O2SAT 97
--- NOTE | 2021-04-02 09:22 | ED.GENADUL_ITS ---
Discharge Plan Disposition Patient Disposition: HOME Condition: Stable Discharge Details Clinical Impression: Avulsion fracture of ankle Primary Care Provider: Wendy Blair ED Provider: Valeriano Rubio Home Meds and New Rx's Prescriptions: Continued gabapentin 100 mg capsule 100 mg PO TID PRN PRNRF: 0 albuterol sulfate [Ventolin HFA] 90 mcg/actuation HFA aerosol inhaler 2 puff IH Q4H PRN Qty: 8 RF: 3 losartan 50 mg tablet 50 mg PO DAILY Qty: 90 RF: 3 mirtazapine 15 mg tablet 7.5 mg PO DAILY RF: 0 Discharge Instructions Instructions: Ankle Fracture (ED) Additional Instructions: X-ray reveals an avulsion fracture. Wear walking boot and use crutches, I recommend using crutches until reevaluation with orthopedics. Rest, elevate, cool compresses every 2 hours for 20 minutes. [id number] Tylenol and/or Motrin as directed for discomfort. I have placed you on the orthopedic list, contact their office tomorrow to discuss outpatient reevaluation. I am providing you with a work note for the rest of the week. Please watch for new or worsening symptoms and return to the ER for any concerns. Stand Alone Forms: Work Release Referrals: Mariano Isaac MD [ [facility] STAFF PHYSICIAN] - Medical Decision Making 50-year-old female presents with left foot and ankle injury status post stepping awkwardly off a 2 inch step earlier this morning. No obvious deformity. Neuro, vascular, tendon intact. Will obtain dedicated films of the foot and ankle for further evaluation. X-ray raised suspicion for potential avulsion fracture. Discussed x-ray findings with patient. Will place in a tall walking boot and crutches. Will place on the orthopedic list to help expedite outpatient care. Recommend she uses crutches until reevaluation with orthopedics. Discussed the importance of resting, elevating, cool compresses minimum of every 2 hours for 20 minutes. Patient feels as though [id number] medication will be sufficient for discomfort. Medical Records Medical records reviewed: Yes I reviewed the patient's medical records. Imaging Data Radiologic Study: Attestation: I personally reviewed and interpreted this imaging study as follows: Imaging: X-Ray Radiologist's impression: Exam(s) XR ANKLE LT COMPLETE EXAM: XR ANKLE LT COMPLETE CLINICAL HISTORY: fall/twist, missed a step. TECHNIQUE: 2D digital imaging was performed. COMPARISON: CR RIGHT ANKLE COMPLETE from 04/17/2018 FINDINGS: There are no fractures of the malleoli nor widening of the ankle mortise. However, a calcific density seen laterally which are either off the talus or calcaneus and may represent avulsion injuries. Talar dome appears unremarkable. Base of the 5th metatarsal is intact. Bone density is normal. IMPRESSION: Possible avulsion fracture lateral aspect of the hindfoot as described above Radiologic Study #2: Attestation: I personally reviewed and interpreted this imaging study as follows: Imaging: X-Ray Radiologist's impression: XR FOOT LT COMPLETE EXAM: XR FOOT LT COMPLETE CLINICAL HISTORY: twist/fall, missed a step. TECHNIQUE: 2D digital imaging was performed. COMPARISON: CR RIGHT FOOT COMPLETE from 04/26/2013 CR RIGHT ANKLE COMPLETE from 04/17/2018 CR RIGHT ANKLE COMPLETE from 04/17/2018 CR XR ANKLE LT COMPLETE from 04/02/2021 CR XR ANKLE LT COMPLETE from 04/02/2021 FINDINGS: No evidence of acute fracture or diastasis of the Lisfranc joint. No radiopaque foreign body. Bone density normal. No osseous lesions However, there are abnormality evident on the ankle images. Spleen is refer that separate report HPI General Mode of arrival: ambulatory . Date/Time Provider Initiated Documentation: 04/02/21 09:12 . Limitations to Documentation: no limitations . Information obtained by: patient . HPI Narrative: This is a 50-year-old female, past medical history of hypertension, migraines, depression, asthma, presenting complaining of left ankle and foot pain. Patient states that she missed stepped down a small cement step may be 2 inches, this occurred around 4:00 this morning. Reports twisting her foot and ankle, denies any other injury. Denies striking her head, neck pain, hip pain, knee pain, numbness, tingling, weakness. Reports the pain is mild to moderate at rest but worse with movement or bearing weight. She has not taken any medication for her symptoms. Related Data Home Medications Medication Instructions Recorded Confirmed albuterol sulfate 90 mcg/actuation 2 puff IH Q4H PRN #8 gm 11/20/20 04/02/21 aerosol inhaler gabapentin 100 mg capsule 100 mg PO TID PRN PRN cap 11/20/20 04/02/21 losartan 50 mg tablet 50 mg PO DAILY #90 tab 01/01/21 04/02/21 mirtazapine 7.5 mg PO DAILY 04/02/21 04/02/21 Previous Rx's Medication Instructions Recorded albuterol sulfate 90 mcg/actuation 2 puff IH Q4H PRN #8 gm 11/20/20 aerosol inhaler losartan 50 mg tablet 50 mg PO DAILY #90 tab 01/01/21 Allergies Allergy/AdvReac Type Severity Reaction Status Date / Time codeine Allergy Unknown Verified 01/01/21 14:21 escitalopram oxalate Allergy Unknown Verified 01/01/21 14:21 [From Lexapro] hydroxyzine Allergy Unknown Verified 01/01/21 14:21 hydrocodone bitartrate AdvReac Severe cannot Verified 01/01/21 14:21 [From Vicodin] breath sertraline AdvReac hair loss Verified 01/01/21 14:21 DEMEROL/NARCOTICS AdvReac Intermediate Uncoded 01/01/21 14:21 General Stated Complaint: Orthopedic SALLIE: 4 Review of Systems Constitutional Constitutional: Denies weakness Musculoskeletal Musculoskeletal: Denies deformity, Reports arthralgias, Reports joint swelling, Denies numbness, Reports stiffness and Denies tingling Integumentary/Breasts Skin/Breast: Denies erythema Neurologic Neurologic: Denies numbness, Denies tingling and Denies weakness [facility] Medical History Alcohol use disorder, mild, in sustained remission Alcoholism and drug addiction in family Daughter in recovery, but facing alf time; Son actively IVDA Alopecia (01/07/18) Anxiety Asthma Wheat's palsy Wheat's palsy Depression Essential hypertension External hemorrhoid PRN topical steroid Family history of breast cancer in mother Fibrocystic disease of both breasts Flea bite of multiple sites HPV test positive 10/02/2019 pap smear, recalled for 1 year when POS again 11/2020-->refer to [facility] Hyperesthesia (03/19/14) Left Hyperlipidemia, unspecified (03/22/18) 03/2018 labs: 10-year ASCVD risk = ~2.8% --> no statin indicated at this time Post-concussion headache PTSD (post-traumatic stress disorder) Tobacco use disorder quit 05/23/19 Surgical History H/O hemorrhoidectomy H/O wisdom tooth extraction Family History Mother , Breast CA at age 50. Neoplasm Brain, Lung Father Alcohol abuse Son Narcolepsy Daughter Drug abuse and dependence Brother AVM (arteriovenous malformation) brain Social History Smoking/Tobacco Use Status: Current-Occasional Quit status: considering quitting Second Hand Exposure: Yes Smoking risk assessment performed?: Yes Alcohol Intake: current Alcohol Intake frequency: holidays/special occasions only Drug use: Occasionally Substance use type: marijuana Household members: friend(s) and other Housing: apartment Number of Children: 3 number of grandchildren: 6 Communication Needs: None Education Level: high school Details: 11 Do you need help understanding health information?: Never Pets and animals: Yes Pets and animals: dog(s) Sexually active: No Do you think of yourself as: straight/heterosexual Current gender identity: female What is your relationship status?: How often do you talk on the phone with friends or family?: three or more times per week How often do you get together with friends or relatives?: three or more times per week How often do you attend congregational or bahai services?: 4 or more times per year Do you belong to any clubs or organized social groups?: no Panel score (0-1 are the most socially isolated patients): 2 What type of physical activity do you participate in: walking and yoga Duration: 30-45 minutes/day Frequency: daily Rozina/Caodaism: Jain Special rozina needs: No (non practicing) Seatbelt use: always Helmet use: Yes Helmet use: always Drive intox or ride w/intox truck driver instructor: No Do you feel safe at home: Yes Do you feel safe in your relationship?: Yes Exam Const General: cooperative, healthy appearing, comfortable and no acute distress Orientation: alert and awake HENAZ Head: normal to inspection, normocephalic and atraumatic Eyes General: appearance normal, both eyes and all related structures Conjunctivae: conjunctivae normal Neck Neck: normal visual inspection, trachea midline and supple Resp Effort & Inspection: normal respiratory effort and able to speak in complete sentences Cardio Rate: regular rate Rhythm: regular rhythm Skin General skin exam: no rashes or lesions noted Neuro General: patient alert, patient awake, moves all extremities and no focal motor deficits Cognition: normal cognition Speech: speech normal Gait: antalgic Motor: muscle tone normal throughout Sensory Exam: no sensory deficits noted Extrem General: capillary refill normal Other: Left lower extremity, hip, knee, unremarkable. Normal capillary refill and dorsalis pedal pulse. There is diffuse mild swelling and ecchymosis across the lateral malleolus does extend to the dorsum of the foot across the fourth and fifth metatarsal region. Skin is intact. Limited range of motion secondary to discomfort. No joint laxity. Neuro, vascular, tendon intact. Psych Appearance: grossly normal Mental Status: mental status grossly normal Course Vital Signs Vital signs: Vital Signs Temperature 36.6 C 04/02/21 09:06 Pulse 97 H 04/02/21 09:06 Respiratory Rate 16 04/02/21 09:06 Blood Pressure 150/91 H 04/02/21 09:06 Pulse Oximetry 97 04/02/21 09:06 Temperature 36.6 C 04/02/21 09:06 Temperature Source Skin 04/02/21 09:06 Pulse 97 H 04/02/21 09:06 Respiratory Rate 16 04/02/21 09:06 Respiratory Effort 04/02/21 09:17 Blood Pressure 150/91 H 04/02/21 09:06 Blood Pressure Position Sitting 04/02/21 09:06 Pulse Oximetry 97 04/02/21 09:06 Oxygen Delivery Method Room Air 04/02/21 09:06 Oxygen Flow Rate 0 04/02/21 09:06 Pain Level 10 04/02/21 09:19 Comment 04/02/21 09:06
--- NOTE | 2021-04-02 09:44 | DI.RAD_ITS ---
Exam(s) XR FOOT LT COMPLETE EXAM: XR FOOT LT COMPLETE CLINICAL HISTORY: twist/fall, missed a step. TECHNIQUE: 2D digital imaging was performed. COMPARISON: CR RIGHT FOOT COMPLETE from 04/26/2013 CR RIGHT ANKLE COMPLETE from 04/17/2018 CR RIGHT ANKLE COMPLETE from 04/17/2018 CR XR ANKLE LT COMPLETE from 04/02/2021 CR XR ANKLE LT COMPLETE from 04/02/2021 FINDINGS: No evidence of acute fracture or diastasis of the Lisfranc joint. No radiopaque foreign body. Bone density normal. No osseous lesions However, there are abnormality evident on the ankle images. Spleen is refer that separate report IMPRESSION: DATA REPOSITORY: RADIATION DOSE DELIVERED:
--- NOTE | 2021-04-02 09:44 | DI.RAD_ITS ---
Exam(s) XR ANKLE LT COMPLETE EXAM: XR ANKLE LT COMPLETE CLINICAL HISTORY: fall/twist, missed a step. TECHNIQUE: 2D digital imaging was performed. COMPARISON: CR RIGHT ANKLE COMPLETE from 04/17/2018 FINDINGS: There are no fractures of the malleoli nor widening of the ankle mortise. However, a calcific densit y seen laterally which are either off the talus or calcaneus and may represent avulsion injuries. Talar dome appears unremarkable. Base of the 5th metatarsal is intact. Bone density is normal. IMPRESSION: Possible avulsion fracture lateral aspect of the hindfoot as described above DATA REPOSITORY: RADIATION DOSE DELIVERED:
[2021-04-02 10:49] VITALS: BP 148/80
== END 2021-04-02 10:54 | disposition home or self-care (01) ==
PROVIDERS: Emergency Provider Physician Assistant; PCP Nurse Practitioner Adult Health
DX: S82.892A Other fracture of left lower leg, initial encounter for closed fracture (principal); X50.1XXA Overexertion from prolonged static or awkward postures, initial encounter
CPT/HCPCS: 29515; 99284; 73610; 73630; 99283

== ENCOUNTER 2021-08-07 16:35 | Outpatient (REF) | payer MEDICAID, SELFPAY ==
--- NOTE | 2021-08-07 15:40 | ENDO_PTH ---
PATIENT: Dulce Griffin LOC: [facility]#:[id number] AGE/SX: 50/F ROOM: RE08/07/[address]: Mana Ames DO : 1970 BED: DIS: 08/07/2021 SPEC #: [id number] RECD: 08/07/21 17:00 STATUS: OLIVERIO REVick #: [id number] GAYATHRI: 08/07/21 15:[address]: Mana Ames DEPT: Surgical Specimen RECD BY: Ofelia Grubbs ENTERED: 08/07/21 17:03 SP TYPE: Endo OTHR DR: Wendy Blair APRN Tissues: 1 - ENDOCERVICAL BX/CURRETTE 2 - CERVICAL BIOPSY Procedures: GROSS AND MICRO LEVEL 4 Comments: [id number]
== END 2021-08-07 16:36 | disposition home or self-care (01) ==
LOC: NCHCN 16:35
PROVIDERS: PCP Nurse Practitioner Adult Health; Visit Provider Obstetrics & Gynecology
DX: R23.4 Changes in skin texture (principal)
CPT/HCPCS: 88305

== ENCOUNTER 2021-09-15 01:57 | Outpatient (CLI) | payer MEDICAID, SELFPAY ==
--- NOTE | 2021-09-15 09:15 | DI.RAD_ITS ---
Exam(s) XR ARTHRITIS SERIES EXAM: XR ARTHRITIS SERIES CLINICAL HISTORY: r/o bony erosions; assess PIP joints,BILAT HAND PAIN,FAMILY H/O RA,M25.50,. TECHNIQUE: 2D digital imaging was performed. COMPARISON: CR RIGHT HAND COMPLETE from 01/09/2010 CR XR FOOT LT COMPLETE from 04/02/2021 FINDINGS: BONES: No acute fracture is present. No bony erosions are seen. Bones are normally mineralized. JOINTS: No dislocation present. Mild narrowing of the interphalangeal joint spaces and mild periarti cular spurring. Findings slightly greater on the right, at the distal interphalangeal joints.. SOFT TISSUE: Normal. 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 No bony e rosions. DATA REPOSITORY: RADIATION DOSE DELIVERED:
== END 2021-09-15 02:17 ==
PROVIDERS: PCP Nurse Practitioner Adult Health; Visit Provider Nurse Practitioner Adult Health
DX: Z82.69 Family history of other diseases of the musculoskeletal system and connective tissue; M19.041 Primary osteoarthritis, right hand; M19.042 Primary osteoarthritis, left hand
CPT/HCPCS: 73120

== ENCOUNTER 2021-09-15 18:39 | Outpatient (CLI) | payer MEDICAID, SELFPAY ==
[2021-09-15 13:03] LABS: ESR 6 mm/hr (0-20)
[2021-09-15 14:36] LABS: C-Reactive Protein 0.33 mg/dL (0.0-0.3)
[2021-09-15 21:59] LABS: Rheumatoid Factor <8.6 IU/mL (<12.0)
[2021-09-16 10:08] LABS: Cyclic Citrullinated Peptide <2.5 U/mL (<5.0)
== END 2021-09-15 18:40 | disposition home or self-care (01) ==
LOC: LBO 18:40
PROVIDERS: PCP Nurse Practitioner Adult Health; Visit Provider Nurse Practitioner Adult Health
DX: M25.59 Pain in other specified joint (principal); M79.641 Pain in right hand; M79.642 Pain in left hand; Z82.61 Family history of arthritis
CPT/HCPCS: 36415; 85652; 86200; 86140; 86431

== ENCOUNTER 2022-03-23 07:54 | Emergency (ER) | payer MEDICAID, SELFPAY ==
[2022-03-23 08:07] VITALS: BP 125/82; PULSE 82; RESP 16; TEMP 36.8; O2SAT 97
--- NOTE | 2022-03-23 08:28 | ED.GENADUL_ITS ---
Discharge Plan Disposition Patient Disposition: HOME Condition: Good Discharge Details Clinical Impression: Ankle contusion, Ankle sprain Primary Care Provider: Wendy Blair ED Provider: Ashley Wells Home Meds and New Rx's Prescriptions: Continued gabapentin 100 mg capsule 300 mg PO DAILY PRN Label Comments: [facility] hot flashes & anxiety loratadine 10 mg tablet 10 mg PO DAILY Qty: 30 0RF Rx Instructions: Hives triamcinolone acetonide 0.1 % cream 1 applic topical BID PRN (Reason: itchy rash) Qty: 30 0RF olmesartan 20 mg tablet 20 mg PO DAILY Qty: 90 3RF Rx Instructions: Blood pressure, goal <130/80 ciprofloxacin-dexamethasone [Ciprodex] 0.3-0.1 % drops,suspension 4 drp otic (ear) BID Qty: 7.5 0RF albuterol sulfate [ProAir HFA] 90 mcg/actuation HFA aerosol inhaler See Rx Instructions .ROUTE .COMPLEX Qty: 25.5 3RF Dose Instruction: INHALE TWO PUFFS BY MOUTH EVERY 4 HOURS NEEDED FOR COUGH OR FOR SHORTNESS OF BREATH OR WHEEZING Rx Instructions: INHALE TWO PUFFS BY MOUTH EVERY 4 HOURS NEEDED FOR COUGH OR FOR SHORTNESS OF BREATH OR WHEEZING mirtazapine 15 mg tablet 7.5 mg PO DAILY Label Comments: [facility] Discharge Instructions Instructions: Ankle Sprain (ED), Contusion in Adults (ED) Additional Instructions: Your x-ray is reassuring here today, no evidence of fracture. I am concerned for contusion and sprain. As we discussed, please encourage rest, ice, elevation. Tylenol and ibuprofen as needed for discomfort. Please continue with brace while pain persist. As you have had this chronic discomfort since your previous fracture, I would like you to try some physical therapy for ankle strengthening as well as methods to reduce your discomfort. Referral is attached. Please follow-up with your primary care in 2 weeks for reevaluation. If you develop any new or worsening symptoms please seek care urgently once again. Stand Alone Forms: Physical Therapy Referral, Work Release Referrals: Wendy Blair, [employer] [Primary Care Provider] - Discharge Data Discharge Date/Time-TO BE ENTERED AT DEPARTURE: 03/23/22 10:15 Medical Decision Making Patient is a pleasant 51-year-old female presenting today with chief complaint of left ankle pain. She reports that last night she was lifting a large metal clothing rack above her head when one of the cars came dislodged and fell striking her in the lateral aspect of her ankle. She reports that this did take her off of her feet and caused her to somersault. She denies other injury at the time of the incident. States that she suffers previous fracture to this ankle, chart review shows that she had an avulsion fracture which healed nonoperatively without complication. She does report that she has chronic pain in this ankle. States that while she has been able to walk on the foot, it has been quite painful for her. She did take ibuprofen last night, nothing this morning. On exam, patient appears nontoxic. Vital signs are stable. Exam the left lower extremity without any objective evidence of trauma. No appreciable swelling. Patient is point tender over the lateral malleolus and over the ATFL. Patient does report that when this happened she also suffered an internal rotational event to the ankle. Sensation is intact. 2+ distal pulses. Able to move her toes well. No pain over the proximal fibular head head or neck. No pain with palpation over the calcaneus, proximal fifth metatarsal, medial, anterior ankle. We will obtain x-ray to evaluate for potential fracture. We will also give Tylenol and ibuprofen for discomfort. XR reviewed by radiologist: FINDINGS: BONES: No acute fracture is present. No bony destructive lesion is seen. JOINTS:The ankle mortise is normally aligned. SOFT TISSUE: Normal. IMPRESSION: Unremarkable radiographs of the left ankle. Discussed with patient. Advised likely pain with contusion and sprain. Encouraged RICE. Will fit with lace up brace. As she has had chronic pain from her previous fx, will also refer to PT. Advised f/u with PCP in the next 1-2 wks for reevalution. All of her questions and concerns were addressed, she is in agreement with this plan. HPI General Date/Time Provider Initiated Documentation: 03/23/22 08:28 . Limitations to Documentation: no limitations . Information obtained by: patient, RN notes reviewed and old records reviewed . History of Present Illness 51 year old F presents to the emergency department with the chief complaint of left ankle pain, described as severe, with intensity rated at 10. Quality is described as aching, and is localized to the left and lower extremity. Patient proximal. Patient started experiencing this day(s) (1) and it has been constant. Immobilization improves symptom(s), Movement worsens symptoms . Patient notes no other symptoms.. Patient did receive the following treatments prior to arrival, none Related Data Home Medications Medication Instructions Recorded Confirmed olmesartan 20 mg tablet 20 mg PO DAILY #90 tabs 05/29/21 03/23/22 mirtazapine 15 mg tablet 7.5 mg PO DAILY 07/16/21 03/23/22 gabapentin 100 mg capsule 300 mg PO DAILY PRN 08/22/21 03/23/22 loratadine 10 mg tablet 10 mg PO DAILY #30 tabs 08/22/21 03/23/22 triamcinolone acetonide 0.1 % 1 applic topical BID PRN itchy 08/22/21 03/23/22 topical cream rash #30 grams Ciprodex 0.3 %-0.1 % ear 4 drp otic (ear) BID #7.5 mL 09/25/21 03/23/22 drops,suspension (ciprofloxacin-dexamethasone) albuterol sulfate 90 mcg/actuation See Rx Instructions .Route 10/22/21 03/23/22 aerosol inhaler (ProAir HFA) .COMPLEX #25.5 grams Previous Rx's Medication Instructions Recorded olmesartan 20 mg tablet 20 mg PO DAILY #90 tabs 05/29/21 loratadine 10 mg tablet 10 mg PO DAILY #30 tabs 08/22/21 triamcinolone acetonide 0.1 % 1 applic topical BID PRN itchy 08/22/21 topical cream rash #30 grams Ciprodex 0.3 %-0.1 % ear 4 drp otic (ear) BID #7.5 mL 09/25/21 drops,suspension (ciprofloxacin-dexamethasone) albuterol sulfate 90 mcg/actuation See Rx Instructions .Route 10/22/21 aerosol inhaler (ProAir HFA) .COMPLEX #25.5 grams Allergies Allergy/AdvReac Type Severity Reaction Status Date / Time codeine Allergy Unknown Verified 03/23/22 08:11 escitalopram oxalate Allergy Unknown Verified 03/23/22 08:11 [From Lexapro] hydroxyzine Allergy Unknown Verified 03/23/22 08:11 hydrocodone bitartrate AdvReac Severe cannot Verified 03/23/22 08:11 [From Vicodin] breath sertraline AdvReac hair loss Verified 03/23/22 08:11 DEMEROL/NARCOTICS AdvReac Intermediate Uncoded 03/23/22 08:11 General Stated Complaint: Orthopedic SALLIE: 4 Review of Systems Constitutional Constitutional: Reports as per HPI and Denies weakness Cardiovascular Cardiovascular: Reports as per HPI Respiratory Respiratory: Reports as per HPI and Denies cough Musculoskeletal Musculoskeletal: Reports as per HPI and Denies tingling Integumentary/Breasts Skin/Breast: Reports as per HPI, Denies rash and Denies wounds Neurologic Neurologic: Reports as per HPI, Denies tingling, Denies paresthesias and Denies weakness PFSH All Active Problems (Updated 03/23/22 @ 09:45 by TIGIST Farrell) Ankle contusion (Acute) Ankle sprain (Acute) Osteoarthritis of hands, bilateral (Chronic) NEG RA work-up 09/2021; see b/l hand films & labs ASCUS with positive high risk HPV (Acute) Alcoholism and drug addiction in family (Acute) Daughter in recovery, but facing mcfp time; Son actively IVDA Family history of breast cancer in mother (Acute) Essential hypertension (Acute) Hot flashes (Acute) RX Gabapentin Migraine (Chronic) 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); self-manages exercise; remote h/o neuro HPV test positive (Acute) 10/02/2019 pap smear, recalled for 1 year when POS again 11/2020-->refer to [facility] Cannabis use disorder, mild, abuse (Acute) Hyperlipidemia, unspecified (Chronic 03/22/18) 03/2018 labs: 10-year ASCVD risk = ~2.8% --> no statin indicated at this time Anxiety (Chronic) Medical History Alcohol use disorder, mild, in sustained remission Alopecia (01/07/18) Asthma Avulsion fracture of ankle (04/02/21) Wheat's palsy Wheat's palsy Depression External hemorrhoid PRN topical steroid Fibrocystic disease of both breasts Flea bite of multiple sites Hyperesthesia (03/19/14) Left Post-concussion headache PTSD (post-traumatic stress disorder) PTSD (post-traumatic stress disorder) Tobacco use disorder quit 05/23/19 Surgical History H/O hemorrhoidectomy H/O wisdom tooth extraction Family History Mother , Breast CA at age 50. Neoplasm Brain, Lung Rheumatoid arthritis Father Alcohol abuse Son Narcolepsy Daughter Drug abuse and dependence Brother AVM (arteriovenous malformation) brain Social History Smoking/Tobacco Use Status: Current-Occasional Quit status: considering quitting Second Hand Exposure: Yes Smoking risk assessment performed?: Yes Alcohol Intake: current Alcohol Intake frequency: holidays/special occasions only Drug use: Occasionally Substance use type: marijuana Household members: friend(s) and other Housing: apartment Number of Children: 3 number of grandchildren: 6 Communication Needs: None Education Level: high school Details: 11 Do you need help understanding health information?: Never Pets and animals: Yes Pets and animals: dog(s) Sexually active: No Do you think of yourself as: straight/heterosexual Current gender identity: female What is your relationship status?: How often do you talk on the phone with friends or family?: three or more times per week How often do you get together with friends or relatives?: three or more times per week How often do you attend voodoo or congregational services?: 4 or more times per year Do you belong to any clubs or organized social groups?: no Panel score (0-1 are the most socially isolated patients): 2 What type of physical activity do you participate in: walking and yoga Duration: 30-45 minutes/day Frequency: daily Rozina/Voodoo: Christianity Special rozina needs: No (non practicing) Seatbelt use: always Helmet use: Yes Helmet use: always Drive intox or ride w/intox truck driver's offsider: No Do you feel safe at home: Yes Do you feel safe in your relationship?: Yes Exam Const General: cooperative, healthy appearing, comfortable, no acute distress, well developed and well groomed Nutritional Appearance: average body habitus and well nourished Orientation: alert and awake Resp Effort & Inspection: normal respiratory effort, able to speak in complete sentences and no respiratory distress Cardio Rate: regular rate Rhythm: regular rhythm Skin General skin exam: no rashes or lesions noted Lesions: no lesions Rashes: no rashes Trauma: no lacerations or abrasions Neuro General: patient alert and patient awake Cognition: normal cognition Speech: speech normal Gait: antalgic Motor: muscle tone normal throughout Sensory Exam: no sensory deficits noted Extrem Ankle/foot/toe images: 1. Area of maximal tenderness. No objective swelling, ecchymosis or break in yazmin skin. 2+ distal pulses, sensation intact distally, intact capillary refill. Moving toes well. No pain with palpation in calcaneus, proximal 5th metatarsal, midfoot or elsewhere about th efoot. Pain over lateral malleolus and ATFL. No deformity. No pain elswhere iwth palpation. No pain with palpation proximally. Psych Appearance: grossly normal and well kempt Mental Status: mental status grossly normal Speech and Movement: speech and movement normal Course Vital Signs Vital signs: Vital Signs Temperature 36.8 C 03/23/22 08:07 Pulse 82 03/23/22 08:07 Respiratory Rate 16 03/23/22 08:07 Blood Pressure 125/82 03/23/22 08:07 Pulse Oximetry 97 03/23/22 08:07 Temperature 36.8 C 03/23/22 08:07 Temperature Source Temporal Artery Scan 03/23/22 08:07 Pulse 82 03/23/22 08:07 Respiratory Rate 16 03/23/22 08:07 Respiratory Effort 03/23/22 08:07 Blood Pressure 125/82 03/23/22 08:07 Blood Pressure Position Sitting 03/23/22 08:07 Pulse Oximetry 97 03/23/22 08:07 Oxygen Delivery Method Room Air 03/23/22 08:07 Oxygen Flow Rate 0 03/23/22 08:07 Pain Level 10 03/23/22 08:18
[2022-03-23] MEDS: Acetaminophen 325 MG TAB 650 MG PO (08:51)
[2022-03-23] MEDS: Ibuprofen 600 MG TAB PO (08:52)
--- NOTE | 2022-03-23 09:05 | DI.RAD_ITS ---
Exam(s) XR ANKLE LT COMPLETE EXAM: XR ANKLE LT COMPLETE CLINICAL HISTORY: lateral malleolus pain, struck with pole TECHNIQUE: 2D digital imaging was performed. Three views. COMPARISON: CR XR ANKLE LT COMPLETE from 04/02/2021 FINDINGS: BONES: No acute fracture is present. No bony destructive lesion is seen. JOINTS:The ankle mortise is normally aligned. SOFT TISSUE: Normal. IMPRESSION: Unremarkable radiographs of the left ankle. DATA REPOSITORY: RADIATION DOSE DELIVERED:
== END 2022-03-23 10:15 | disposition home or self-care (01) ==
PROVIDERS: Emergency Provider Physician Assistant; PCP Nurse Practitioner Adult Health
DX: S90.02XA Contusion of left ankle, initial encounter (principal); W22.8XXA Striking against or struck by other objects, initial encounter; S93.492A Sprain of other ligament of left ankle, initial encounter; X50.1XXA Overexertion from prolonged static or awkward postures, initial encounter
CPT/HCPCS: 99283; 73610

== ENCOUNTER 2022-09-17 04:15 | Outpatient (CLI) | payer MEDICAID, SELFPAY ==
[2022-09-17 09:50] LABS: BUN 17 mg/dL (7-18); CREATININE 0.7 mg/dL (0.55-1.02); Calculated LDL 135 mg/dL (<100); Chloride 101 mmol/L (98-107); Cholesterol 222 mg/dL (<200); Glucose 90 mg/dL (74-106); HDL Cholesterol 70 mg/dL (40-60); Potassium 3.9 mmol/L (3.5-5.1); Sodium 137 mmol/L (136-145); TSH (W/Ref FT4) 2.71 uIU/mL (0.36-3.74); Triglyceride 89 mg/dL (<150)
== END 2022-09-17 04:16 | disposition home or self-care (01) ==
LOC: LBO 04:15
PROVIDERS: PCP Nurse Practitioner Adult Health; Visit Provider Nurse Practitioner Adult Health
DX: I10 Essential (primary) hypertension (principal); R68.89 Other general symptoms and signs; Z13.1 Encounter for screening for diabetes mellitus; Z13.220 Encounter for screening for lipoid disorders
CPT/HCPCS: 36415; 80048; 80061; 84443

== ENCOUNTER 2022-10-14 17:05 | Outpatient (CLI) | payer MEDICAID, SELFPAY ==
--- NOTE | 2022-10-14 16:17 | DI.RAD_ITS ---
Exam(s) XR CHEST 2V PA LATERAL EXAM: XR CHEST 2V PA LATERAL CLINICAL HISTORY: Low O2 Saturation, Cough, Nicotine use disorder, R79.81, R05, F17.200 TECHNIQUE: 2D digital imaging was performed of the chest. Two images were obtained. PA and lateral views were obtained. COMPARISON: CR XR CHEST 2V PA LATERAL from 11/06/2019 FINDINGS: MEDIASTINUM: Normal. HEART: Normal. PULMONARY VASCULATURE: Normal. LUNGS: There is COPD. No focal consolidating infiltrates are present. PLEURAL SPACE: No pleural effusion or pneumothorax. BONE:Within normal limits for the patient's age. OTHER FINDINGS:Bilateral nipple shadows are seen. IMPRESSION: No acute pulmonary findings. DATA REPOSITORY: RADIATION DOSE DELIVERED:
== END 2022-10-14 17:25 ==
LOC: DI 17:07
PROVIDERS: PCP Nurse Practitioner Adult Health; Visit Provider Nurse Practitioner Adult Health
DX: F17.200 Nicotine dependence, unspecified, uncomplicated (principal); R05.9 Cough, unspecified; R79.81 Abnormal blood-gas level
CPT/HCPCS: 71046

== ENCOUNTER 2024-02-17 12:01 | Outpatient (REF) | payer MEDICAID, SELFPAY ==
--- NOTE | 2024-02-17 09:30 | PAPFT_PTH ---
PATIENT: Dulce Griffin LOC: [facility] U#:[id number] AGE/SX: 53/F ROOM: RE02/17/[address]: Wendy Blair APRN : 1970 BED: DIS: 02/17/2024 SPEC #: [id number] RECD: 02/17/24 14:28 STATUS: OLIVERIO REVick #: [id number] GAYATHRI: 02/17/24 09:[address]: Wendy Blair DEPT: [facility] Cytology RECD BY: Ofelia Grubbs Tissues: 1 - CX/ENDOCX FOR PAP SMEARS Procedures: PAP THIN PREP/[facility] Screening HPV DNA PROBE Comments: [id number]
== END 2024-02-17 12:02 | disposition home or self-care (01) ==
LOC: LBN 12:01
PROVIDERS: PCP Nurse Practitioner Adult Health; Visit Provider Nurse Practitioner Adult Health
DX: Z12.4 Encounter for screening for malignant neoplasm of cervix (principal)
CPT/HCPCS: 88142; 87624

== ENCOUNTER 2024-03-03 09:10 | Outpatient (CLI) | payer MEDICAID, SELFPAY ==
--- NOTE | 2024-03-03 08:30 | DI.CTLCSR_ITS ---
Exam(s) CT CHEST LUNG CANCER SCREEN EXAM: CT CHEST LUNG CANCER SCREEN CLINICAL HISTORY: Screening for lung cancer F17.210 NICOTINE DEPENDENCE TECHNIQUE: Imaging Protocol: Axial computed tomography images with coronal and sagittal reformatted images were created and reviewed COMPARISON: No exams were available for comparison FINDINGS: Tracheobronchial tree: Patent where visualized. There is no bronchiectasis. Pulmonary parenchyma: Moderately severe centrilobular emphysematous changes are present. No focal co nsolidating infiltrates. Lung Nodules: None. Mediastinum and Sahra: No dominant adenopathy or fluid collection. The esophagus is unremarkable. Thyroid gland: Unremarkable. Lymph nodes: Unremarkable. Pleura: No effusion or pneumothorax. Heart: The heart is not dilated. Mild coronary artery calcification. No pericardial effusion. Aorta: Thoracic aorta non-dilated.Atherosclerotic calcification is present. Upper abdomen: Unremarkable. Soft Tissues: Unremarkable. Bones: Within normal limits. IMPRESSION: No suspicious pulmonary nodules. Lung RADS Cat 1 - Negative: No nodules and definitely benign nodules Lung-RADS 1.0 CATEGORIES: Category 0 - Prior chest CT exam(s) being located for comparison. Category 1 - Annual screening in 12 months. No nodules or definitely benign nodules. Category 2 - Annual screening in 12 months. Benign appearance. Nodules with low likelihood of becomin g active cancer. Category 3 - 6-month follow-up. Probably benign. Short-term follow-up suggested. Nodules with low lik elihood of becoming active cancer. Category 4A - 3-month follow-up and CT/PET if >8 mm in size. Suspicious finding. Findings which requi re additional testing. Category 4B - Findings which require additional testing and tissue sampling. Suspicious finding. Category 4X - Category 3 or 4 nodules with additional features or imaging findings that increases the suspicion of malignancy. Modifier S- Potentially clinically significant finding. (Non lung cancer) RADIATION DOSE DELIVERED: 78.22mGy.cm Total DLP 78.22mGy.cmTotal DLP DATA REPOSITORY: All CT scans at this facility are submitted to the National Radiology Data Registry (NRDR) Dose Index Registry (DIR) with the [employer] (ACR). RADIATION OPTIMIZATION: All CT scans at this facility use at least one of these dose optimization te chniques: automated exposure control; mA and/or kV adjustment per patient size (includes targeted exa ms where dose is matched to clinical indication); or iterative reconstruction.
== END 2024-03-03 09:11 | disposition home or self-care (01) ==
PROVIDERS: PCP Nurse Practitioner Adult Health; Visit Provider Nurse Practitioner Adult Health
DX: F17.210 Nicotine dependence, cigarettes, uncomplicated; Z12.39 Encounter for other screening for malignant neoplasm of breast; Z80.3 Family history of malignant neoplasm of breast
CPT/HCPCS: 71271

== ENCOUNTER 2024-06-08 08:20 | Outpatient (CLI) | payer MEDICAID, SELFPAY ==
--- NOTE | 2024-06-08 07:30 | DI.MAMMO_ITS ---
Exam(s) MAMMO SCREENING EXAM: MAMMO SCREENING CLINICAL HISTORY: screening,family h/o breast ca,z80.3,z12.39 TECHNIQUE: Mammograms were interpreted according to the usual protocol including computer analysis w Diurnal CAD system, tomosynthesis and C-view imaging. COMPARISON: 2014 through 2019 FINDINGS: The breasts are composed of heterogeneously dense fibroglandular densities, Breast Density category C . No suspicious masses or suspicious microcalcifications are seen. No skin thickening or abnormal axillary lymph nodes are seen. There has been no significant change from prior exams. IMPRESSION: BI-RADS Category 1, Negative mammogram. Yearly screening mammography is recommended. Breast Density Category C, heterogeneously Dense. The mammogram demonstrates the patient's breast tissue is dense. Dense breast tissue is very common a nd is not abnormal but dense breast tissue can make it harder to find cancer on a mammogram. Also, de nse breast tissue may increase breast cancer risk. This information about the result of the mammogram report was provided to the patient to raise their awareness. Use this report when you speak with the patient about their risks for breast cancer, which includes their family history. At that time, you may recommend additional screening tests (Ultrasound or MRI) as they might be useful based on their r isk. A negative radiographic report should not delay biopsy if a dominant or clinically suspicious mass is present. Up to ten percent of cancers are not identified on mammography. A negative report may reinforce clinical impression. Adenosis and dense breasts may obscure an underlying neoplasm. False positive reports average 6 to 10%.
== END 2024-06-08 08:40 ==
PROVIDERS: PCP Nurse Practitioner Adult Health; Visit Provider Nurse Practitioner Adult Health
DX: Z12.31 Encounter for screening mammogram for malignant neoplasm of breast (principal); Z80.3 Family history of malignant neoplasm of breast
CPT/HCPCS: 77063; 77067

== ENCOUNTER 2024-12-17 14:33 | Emergency (ER) | payer MEDICAID, SELFPAY ==
[2024-12-17 14:36] VITALS: BP 153/92; PULSE 89; RESP 24; TEMP 36.5; O2SAT 95
[2024-12-17 14:38] VITALS: BP 153/92; PULSE 89; RESP 24; TEMP 36.5; O2SAT 95
--- NOTE | 2024-12-17 14:52 | ED.GENADUL_ITS ---
Discharge Plan Disposition Patient Disposition: Home Condition: Good Discharge Details Clinical Impression: Allergic sinusitis Primary Care Provider: Wendy Blair ED Provider: Dave Olivo Home Meds and New Rx's Prescriptions: New amoxicillin-pot clavulanate 875-125 mg tablet 1 tab PO BID 10 Days Qty: 20 0RF No Action loratadine 10 mg tablet 10 mg PO DAILY PRN Rx Instructions: Allergic asthma olmesartan 20 mg tablet 20 mg PO DAILY Qty: 90 3RF Rx Instructions: Blood pressure albuterol sulfate 2.5 mg /3 mL (0.083 %) solution for nebulization 2.5 mg inhalation Q4H PRN (Reason: shortness of breath or wheezing) Qty: 90 0 RF mirtazapine 7.5 mg tablet See Rx Instructions .ROUTE .COMPLEX Qty: 90 3RF Dose Instruction: TAKE ONE TABLET BY MOUTH AT BEDTIME Rx Instructions: TAKE ONE TABLET BY MOUTH AT BEDTIME albuterol sulfate [Ventolin HFA] 90 mcg/actuation HFA aerosol inhaler See Rx Instructions .ROUTE .COMPLEX Qty: 54 3RF Dose Instruction: INHALE TWO PUFFS BY MOUTH EVERY 4 HOURS NEEDED FOR COUGH, SHORTNESS OF BREATH, OR WHEEZING Rx Instructions: INHALE TWO PUFFS BY MOUTH EVERY 4 HOURS NEEDED FOR COUGH, SHORTNESS OF BREATH, OR WHEEZING Discharge Instructions Additional Instructions: You were seen in the emergency department for your sinus pain and nasal drainage. I suspect that you have allergies causing an allergic sinusitis or inflammation of your sinuses. I recommend that you start taking ceti rizine/Zyrtec 10 mg daily as this is an antihistamine/allergy medication which may significantly help with your symptoms. It is nonsedating. At night you can also take 50 mg of Benadryl before bed if you are having significant symptoms at night as well but realized this antihistamine is sedating and may make you feel very sleepy. Both of these medications are available [id number]. You can take Tylenol and ibuprofen per bottle directions for any additional pain or discomfort. I think it is very unlikely that you have a bacterial sinus infection. We generally do not treat unless you have significant sinus drainage and sinus pain for a total of 10 days. I sent a prescription for antibiotics for you but do not start them unless your symptoms have not improved in about a week. If you develop worsening symptoms please return to the emergency department. Otherwise follow-up with your primary care doctor to consider additional treatments or testing for your more frequent sinus problems. Referrals: Wendy Blair, [employer] [Primary Care Provider] - Return if symptoms worsen HPI General Mode of arrival: ambulatory . Date/Time Provider Initiated Documentation: 12/17/24 14:37 . Limitations to Documentation: no limitations . Information obtained by: patient . HPI Narrative: 54-year-old female presents with 4 days of sinus pressure and nasal drainage. No fevers or chills. Some cough. No shortness of breath. No sore throat. No ear pain. She has had frequent sinus infections in the past. She denies any other complaints. Related Data Home Medications ?Medication ?Instructions ?Recorded ?Confirmed mirtazapine 7.5 mg tablet See Rx Instructions .Route 02/16/24 12/17/24 .COMPLEX #90 tabs albuterol sulfate 90 mcg/actuation See Rx Instructions .Route 05/31/24 12/17/24 aerosol inhaler (Ventolin HFA) .COMPLEX #54 grams albuterol sulfate 2.5 mg/3 mL 2.5 mg (3 mL) inhalation Q4H PRN 10/04/24 12/17/24 (0.083 %) solution for nebulization shortness of breath or wheezing #90 mL loratadine 10 mg tablet 10 mg PO DAILY PRN 10/04/24 12/17/24 olmesartan 20 mg tablet 20 mg PO DAILY #90 tabs 10/04/24 12/17/24 amoxicillin 875 mg-potassium 1 tab PO BID 10 days #20 tabs 12/17/24 clavulanate 125 mg tablet Previous Rx's ?Medication ?Instructions ?Recorded mirtazapine 7.5 mg tablet See Rx Instructions .Route 02/16/24 .COMPLEX #90 tabs albuterol sulfate 90 mcg/actuation See Rx Instructions .Route 05/31/24 aerosol inhaler (Ventolin HFA) .COMPLEX #54 grams albuterol sulfate 2.5 mg/3 mL 2.5 mg (3 mL) inhalation Q4H PRN 10/04/24 (0.083 %) solution for nebulization shortness of breath or wheezing #90 mL olmesartan 20 mg tablet 20 mg PO DAILY #90 tabs 10/04/24 amoxicillin 875 mg-potassium 1 tab PO BID 10 days #20 tabs 12/17/24 clavulanate 125 mg tablet Allergies Allergy/AdvReac Type Severity Reaction Status Date / Time meperidine (From Demerol) Allergy Severe Itching Verified 12/17/24 14:40 codeine Allergy Unknown Pain with Verified 12/17/24 14:40 breathing escitalopram oxalate (From Allergy Unknown Hair loss Verified 12/17/24 14:40 Lexapro) hydroxyzine Allergy Unknown Hair loss Verified 02/17/24 10:33 hydrocodone bitartrate (From AdvReac Severe cannot Verified 12/17/24 14:40 Vicodin) breath sertraline AdvReac hair loss Verified 12/17/24 14:40 General Stated Complaint: RespSymp SALLIE: 4 Review of Systems Constitutional Constitutional: Denies chills, Denies fever(s) and Denies headache(s) Eyes Eyes: Denies change in vision ENT Ears, Nose, Mouth, and Throat: Denies dental pain, Denies dysphagia, Denies vertigo, Denies dizziness, Denies ear discharge, Denies otalgia, Denies headache(s), Denies hoarseness, Denies epistaxis, Reports nasal congestion, Denies odynophagia, Reports sinus pain and Denies sore throat Cardiovascular Cardiovascular: Denies chest pain and Denies dyspnea Respiratory Respiratory: Reports cough and Denies dyspnea Gastrointestinal Gastrointestinal: Denies abdominal pain, Denies dysphagia, Denies diarrhea, Denies nausea, Denies odynophagia and Denies vomiting Genitourinary Genitourinary: Denies dysuria Musculoskeletal Musculoskeletal: Denies myalgias Integumentary/Breasts Skin/Breast: Denies changing lesions Neurologic Neurologic: Denies behavioral changes, Denies vertigo, Denies dizziness and Denies headache(s) Psychiatric Psychiatric: Denies behavioral changes Endocrine Endocrine: Denies heat intolerance Hematologic/Lymphatic Hematologic/Lymphatic: Denies lymphadenopathy Exam Const General: cooperative Nutritional Appearance: average body habitus Orientation: alert, awake and oriented x3 HENMT Head: normal to inspection Ears: external ears normal Mouth: moist mucous membranes Other: Maxillary and frontal sinus tenderness. No overlying redness swelling or warmth. Nasal turbinates unremarkable. Bilateral tympanic membranes and external auditory canals are unremarkable. No mastoid tenderness. Oropharyngeal exam unremarkable. No pharyngeal erythema. Uvula is midline with no tonsillar enlargement. Full range of motion of the neck without pain. Base of the tongue is soft. Intact dentition. No anterior neck swelling. Eyes Pupils: PERRL EOM: EOM intact bilaterally and No nystagmus Neck Neck: full ROM and no tracheal deviation Chest Chest: normal inspection of the chest Resp Auscultation: clear to auscultation bilaterally Cardio Rate: regular rate Rhythm: regular rhythm GI Inspection: normal to inspection Palpation: soft, no guarding, not rigid and nontender Back/Spine/Pelvis Back: No no CVA tenderness Thoracic/Lumbar Spine: thoracic and lumbar spine normal to inspection Skin General skin exam: no rashes or lesions noted Neuro General: patient alert, patient awake and patient oriented x3 Cranial Nerves: CN's II-XI intact bilaterally, PERRL and no nystagmus Cognition: normal cognition Motor: muscle tone normal throughout and strength 5/5 throughout Sensory Exam: no sensory deficits noted Extrem General: normal to inspection Course Vital Signs Vital signs: Vital Signs Temperature 36.5 C 12/17/24 14:36 Pulse 89 12/17/24 14:36 Respiratory Rate 24 12/17/24 14:36 Blood Pressure 153/92 H 12/17/24 14:36 Pulse Oximetry 95 12/17/24 14:36 Temperature 36.5 C 12/17/24 14:38 Pulse 89 12/17/24 14:38 Respiratory Rate 24 12/17/24 14:38 Blood Pressure 153/92 H 12/17/24 14:38 Blood Pressure Position Sitting 12/17/24 14:38 Pulse Oximetry 95 12/17/24 14:38 Oxygen Delivery Method Room Air 12/17/24 14:38 Oxygen Flow Rate 0 12/17/24 14:38 Medical Decision Making This is a 54-year-old female who presents with sinus pain and nasal drainage. I suspect based off her symptoms that she has allergic sinusitis. Could represent a viral sinusitis but this would improve with conservative treatment regardless. Recommended she take antihistamines for a few days to see if this helps with symptoms. If her symptoms are not improving in 1 week, I have sent a prescription for antibiotics for which she can fill. She expresses understanding. Will discharge with return precautions. No signs of pneumonia so no role for chest x-ray. Pharynx is unremarkable effectively ruling out viral pharyngitis or strep pharyngitis. Tympanic membranes and mastoids unremarkable effectively ruling out mastoiditis and otitis media. Medical Records Medical records reviewed: Yes I reviewed the patient's medical records. 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); self-manages exercise; remote h/o neuro HPV test positive (Acute) 10/02/2019 pap smear, recalled for 1 year when POS again 11/2020-->refer to [facility] Cannabis use disorder, mild, abuse (Acute) Hyperlipidemia, unspecified (Chronic 03/22/18) 03/2018 labs: 10-year ASCVD risk = ~2.8% --> no statin indicated at this time Anxiety (Chronic) Medical History Hot flashes RX Gabapentin Avulsion fracture of ankle (04/02/21) Flea bite of multiple sites Post-concussion headache External hemorrhoid PRN topical steroid Alcohol use disorder, mild, in sustained remission Hyperesthesia (03/19/14) Left Tobacco use disorder quit 05/23/19 PTSD (post-traumatic stress disorder) Depression Wheat's palsy Asthma Alopecia (01/07/18) Fibrocystic disease of both breasts Wheat's palsy PTSD (post-traumatic stress disorder) Surgical History H/O hemorrhoidectomy H/O wisdom tooth extraction Family History Mother , Breast CA at age 50. Neoplasm Brain, Lung Rheumatoid arthritis Father Alcohol abuse Son Narcolepsy Daughter Drug abuse and dependence Brother AVM (arteriovenous malformation) brain Social History Smoking/Tobacco Use Status: Current-Occasional Quit status: considering quitting Second Hand Exposure: Yes Smoking risk assessment performed?: Yes Alcohol Intake: current Alcohol Intake frequency: holidays/special occasions only Drug use: Occasionally Substance use type: marijuana Adopted: No Caregiver/Support person: No Foster care: Yes Household members: children Housing: apartment Number of Children: 3 number of grandchildren: 12 Communication Needs: None Education Level: high school Details: 11 Do you need help understanding health information?: Never current occupation: Sheet Metal Journe[employer] Pets and animals: No Sexually active: No Do you think of yourself as: straight/heterosexual Current gender identity: female What is your relationship status?: How often do you talk on the phone with friends or family?: three or more times per week How often do you get together with friends or relatives?: three or more times per week How often do you attend jew or muslim services?: decline to answer Do you belong to any clubs or organized social groups?: no Panel score (0-1 are the most socially isolated patients): 1 What type of physical activity do you participate in: walking Duration: 60-90 minutes/day Frequency: daily Rozina/Moravian: Tenriism Special rozina needs: No (non practicing) Seatbelt use: always Helmet use: Yes Helmet use: always Drive intox or ride w/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 Do you feel safe at home: Yes Do you feel safe in your relationship?: Yes PAWSS Have you Been Recently Intoxicated or Drunk Within the Last 30 days?: No Have you Ever Experienced Previous Episodes of Alcohol Withdrawal?: No Have you ever Experienced Withdrawal Seizures?: No Have you ever Experienced Delirium Tremens(DT)s?: No Have you ever undergone Alcohol Rehabilitation Treatment (i.e, inpt ot outpatient treatment programs)?: No Have you ever Experienced Blackouts?: No Have you ever Combined Alcohol with other Downers within the last 90 days?: No Have you ever Combined Alcohol with any other Substance of Abuse during the last 90 days?: No Positive Blood Alcohol level on Presentation? [PCS.BAL]: No Evidence of Increased Autonomic Activity (i.e. HR>120, tremor, sweating, agitation, nausea)?: No Result: 0
[2024-12-17] MEDS: Cetirizine 10 MG TAB PO (15:04)
[2024-12-17 15:10] VITALS: BP 153/93; PULSE 85; RESP 16; O2SAT 96
== END 2024-12-17 15:12 | disposition home or self-care (01) ==
PROVIDERS: Emergency Provider Student in an Organized Health Care Education/Training Program; PCP Nurse Practitioner Adult Health
DX: J30.9 Allergic rhinitis, unspecified (principal)
CPT/HCPCS: 99283

== ENCOUNTER 2025-03-13 03:09 | Outpatient (CLI) | payer MEDICAID, SELFPAY ==
[2025-03-13 07:47] LABS: ALT 34 U/L (14-59); AST 39 U/L (15-37); Albumin 4.1 g/dL (3.4-5.0); Alkaline Phosphatase 95 U/L (46-116); Anion Gap 5.6 mmol/L (3-11); BUN 11 mg/dL (7-18); CO2 31.4 mmol/L (21.0-32.0); Calcium 9.4 mg/dL (8.5-10.1); Calculated LDL 138 mg/dL (<100); Chloride 99 mmol/L (98-107); Cholesterol 237 mg/dL (<200); Estimated GFR 107.26 (mL/min/1.73m2); Glucose 93 mg/dL (74-106); HDL Cholesterol 90 mg/dL (>or=50); Potassium 3.9 mmol/L (3.5-5.1); Sodium 136 mmol/L (136-145); Total Protein 7.7 g/dL (6.4-8.2); Triglyceride 47 mg/dL (<150)
[2025-03-13 08:01] LABS: Bilirubin, Total 0.5 mg/dL (0.2-1.0)
== END 2025-03-13 03:10 | disposition home or self-care (01) ==
LOC: LBO 03:09
PROVIDERS: PCP Nurse Practitioner Adult Health; Referring Provider Nurse Practitioner Adult Health; Visit Provider Nurse Practitioner Adult Health
DX: Z13.220 Encounter for screening for lipoid disorders (principal); Z13.1 Encounter for screening for diabetes mellitus
CPT/HCPCS: 36415; 80053; 80061

== ENCOUNTER 2025-03-19 18:09 | Outpatient (REF) | payer MEDICAID, SELFPAY ==
--- NOTE | 2025-03-19 11:30 | PAPFT_PTH ---
PATIENT: Dulce Griffin LOC: [facility]#:[id number] AGE/SX: 54/F ROOM: RE03/19/[address]: Wendy Blair APRN : 1970 BED: DIS: 03/19/2025 SPEC #: [id number] RECD: 03/19/25 18:18 STATUS: OLIVERIO REQ #: [id number] GAYATHRI: 03/19/25 11:[address]: Wendy Blair DEPT: [facility] Cytology RECD BY: Ofelia Grubbs Tissues: 1 - CX/ENDOCX FOR PAP SMEARS Procedures: PAP THIN PREP/[facility] Screening HPV DNA PROBE Comments: [id number] (HPV 16 & 18/45)
== END 2025-03-19 18:10 | disposition home or self-care (01) ==
LOC: NCHCN 18:09
PROVIDERS: PCP Nurse Practitioner Adult Health; Visit Provider Nurse Practitioner Adult Health
DX: Z12.4 Encounter for screening for malignant neoplasm of cervix (principal)
CPT/HCPCS: 88142; 87624

== ENCOUNTER 2025-06-27 16:17 | Outpatient (REF) | payer MEDICAID, SELFPAY | END 2025-06-27 16:18 | disposition home or self-care (01) | LOC: LBN 16:17 | PROVIDERS: PCP Nurse Practitioner Adult Health; Visit Provider Physician Assistant Medical | DX: J02.9 Acute pharyngitis, unspecified (principal) | CPT/HCPCS: 87070 ==